=== PATIENT | female | born 1955 | race Caucasian/White ===

== ENCOUNTER 2025-01-23 07:41 | Outpatient (CLI) | payer MEDICARE, SELFPAY ==
--- NOTE | ~2025-01-23 | XR_ITS ---
EXAMINATION: XR chest 2V, 01/23/2025 9:20 CREDIT OR LOANS OFFICER HISTORY: M51.16 - Intervertebral disc disorders with radiculopathy... COMPARISON: No comparisons available. Technique: 2 views obtained. Findings: The lungs are clear, no effusion. No pneumothorax. Heart is normal size. Mediastinal and hilar contours are within normal limits. Bony thorax no acute abnormality. Impression: No acute cardiopulmonary abnormality. Reviewed, dictated and finalized at location P. IT OR LOANS OFFICER Impression: No acute cardiopulmonary abnormality.
--- OUTSIDE RECORDS SUMMARY | 2025-01-23 07:47 | XMS_ITS | Encounter Summary ---
Author Organization [facility] Address [address] [place] [address] Phone Care Team Providers Care Commissioner Of Internal Revenue Name Role Phone Jose Manuel Nance MD Primary Care Provider Irene Steiner FURNACE STOCK INSPECTOR Unavailable [phone] Encounter Details Date Type Department Care Team (Late st Contact Info) Description 08/09/2017 Orders Only [facility] ProviderJamilah MD [address] [place] [id number] Social History Tobacco Use Types Packs/Day Years Used Date Smoking Tobacco: Some Days Smokeless Tobacco: Never Comments:Smoking History Pac ks/day: 1 Packs Alcohol Use Standard Drinks/Week Comments No 0 (1 standard drink = 0.6 oz pur e alcohol) Comments Unknown Sex and Gender Information Value Date Recorded Sex Assigned at Not on file Legal Sex Female 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 Historical Provider LAB BLOOD ORDERABLES Jessica l Result documented in this encounter Visit Diagnoses Not on filedocumented in this encounter Care Teams Commissioner Of Internal Revenue Relationship Specialty Start Date End Date Jose Manuel Nance MD PCP - General 06/16/16 Irene Steiner NP Nurse Practitioner Endocrinology Diabetes & Metabolism 01/19/20 documented as of this encounter
--- OUTSIDE RECORDS SUMMARY | 2025-01-23 07:48 | XMS_ITS | Clinical Summary ---
Author Organization [facility] Address [address] [place] [address] Care Team Providers Care Soils Analyst Name Role Phone Michael Menezes MD Primary Care Provider Irene Steiner [employer] Unavailable [phone] Allergies Active Allergy Reactions Criticality Noted Date Comments Iodine Other (See comments) Low Was put on a wound when she was little and she states the wound got worse Penicillins Unknown Low Reaction: Other, , , Povidone-Iodine Other (See comments) Low Was put on a wound when she was little and she states the wound got worse Shellfish Containing Products Hives Medium Medications Lactobacillus acidophilus (Probiotic) 10 billion cell capsule Take by mouth daily Active acetaminophen (TYLENOL) 500 mg tabletIndicatio ns:Back Pain,Pain Take 1 tablet (500 mg total) by mouth every 6 (six) hours as needed for pain 30 tablet 07/05/19 23 Active blood-glucose sensor device 1 Device every 14 (fourteen) days 6 each 3 03/27/19 24 Active PARoxetine (PAXIL) 20 mg tablet Take 1 tablet (20 mg total) by mouth every morning Note lower dose 90 tablet 3 04/03/19 25 Active gabapentin (NEURONTIN) 300 mg capsule Take 1 capsule (300 mg total) by mouth 4 (four) times a day Active diphenhydrAMINE (BENADRYL) 50 mg capsule Take 1 capsule (50 mg total) by mouth once for 1 dose Take 1 hour prior to scan 1 capsule 08/19/19 25 Active pregabalin (LYRICA) 75 mg capsule Take 1 capsule (75 mg total) by mouth 2 (two) times a day For shingles pain this replaces gabapentin 60 capsule 4 10/10/19 25 026 Active empagliflozin (Jardiance) 25 mg tabletIndicatio ns:Type 2 diabetes mellitus without complication, without long-term current use of insulin (HCC) Take 1 tablet (25 mg total) by mouth daily Note higher dose 90 tablet 3 10/10/19 25 Active tirzepatide (Mounjaro) 12.5 mg/0.5 mL pen injector injection Inject 0.5 mL (12.5 mg total) under the skin once a week 2 mL 10/10/19 25 Active cyclobenzaprine (FLEXERIL) 10 mg tablet TAKE 1 TABLET (10 MG TOTAL) BY MOUTH TWO (2) TIMES a DAY NEEDED FOR MUSCLE SPASMS 60 tablet 10/18/19 25 Active fenofibrate (TRIGLIDE) 160 mg tablet TAKE 1 TABLET (160 MG TOTAL) BY MOUTH DAILY 90 tablet 1 10/21/19 25 Active atorvastatin (LIPITOR) 40 mg tablet TAKE 1 TABLET (40 MG TOTAL) BY MOUTH DAILY 90 tablet 1 10/28/19 25 Active metoprolol tartrate (LOPRESSOR) 25 mg immediate release tablet TAKE 1 TABLET (25 MG TOTAL) BY MOUTH TWO (2) (TWO) TIMES a DAY. 200 tablet 1 11/15/19 25 Active clopidogreL (PLAVIX) 75 mg tablet TAKE 1 TABLET (75 MG TOTAL) BY MOUTH DAILY 90 tablet 3 11/26/19 25 Active LORazepam (ATIVAN) 0.5 mg tablet TAKE 1 TABLET (0.5 MG TOTAL) BY MOUTH EVERY SIX (6) HOURS NEEDED FOR ANXIETY 60 tablet 5 12/20/19 25 Active lisinopriL (PRINIVIL,ZESTR IL) 5 mg tablet TAKE ONE (1) TABLET (5 MG TOTAL) BY MOUTH DAILY 90 tablet 3 12/30/19 25 Active metFORMIN XR (GLUCOPHAGE XR) 500 mg 24 hr tablet TAKE TWO (2) TABLETS (1,000 MG TOTAL) BY MOUTH DAILY WITH BREAKFAST 180 tablet 3 12/30/19 25 Active lisinopriL (PRINIVIL,ZESTR IL) 5 mg tablet TAKE ONE (1) TABLET (5 MG TOTAL) BY MOUTH DAILY 90 tablet 1 07/02/19 25 025 Discontinued metFORMIN XR (GLUCOPHAGE XR) 500 mg 24 hr tablet TAKE TWO (2) TABLETS (1,000 MG TOTAL) BY MOUTH DAILY WITH BREAKFAST 180 tablet 1 07/02/19 25 025 Discontinued metFORMIN XR (GLUCOPHAGE XR) 500 mg 24 hr tablet TAKE TWO (2) TABLETS (1,000 MG TOTAL) BY MOUTH DAILY WITH BREAKFAST 180 tablet 1 12/30/19 25 025 Discontinued lisinopriL (PRINIVIL,ZESTR IL) 5 mg tablet TAKE ONE (1) TABLET (5 MG TOTAL) BY MOUTH DAILY 90 tablet 1 12/30/19 25 025 Discontinued Active Problems Problem Noted Date Diagnosed Date 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 Assessment & Plan (07/23/2024 10:23 AM CDT): Discussed repeat needle biopsy, versus open biopsy, versus referral to Head and Neck Surgery for possible neck dissection to remove all involved lymph nodes Decision at this point is to proceed with referral to Head and Neck surgery Personal interpretation of PET scan: uptake in the Right Level II and III Assessment & Plan (05/21/2024 1:00 PM [employer]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): Doxycycline twice daily for 3 weeks, avoid dairy and sun exposure while on this antibiotics Neck Ultrasound in 3-[address] Neck and Consider excisional biopsy Have Dental evaluation Personal interpretation of PET scan noted multiple right Level II and III lymphadenopathy Lesion of tonsil 05/11/2022 Assessment & Plan (06/23/2022 2:36 PM CDT): Continue increased fluids intake and milder diet for one more week Follow up as needed Assessment & Plan (05/11/2022 9:20 AM 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): Direct laryngoscopy with biopsy of Right tonsillar fossa and midline base of tongue Risks and complications discussed including anesthesia, bleeding, infection, injury to lips, teeth, tongue and gums, injury to larynx and surrounding structures, benign versus malignant pathology, need for further treatment. All questions were answered and patient agreed to proceed. Off Plavix and Aspirin for 5 days before and after Lesion of tongue 05/11/2022 Assessment & Plan (06/23/2022 2:36 PM CDT): Continue increased fluids intake and milder diet for one more week Follow up as needed Assessment & Plan (05/11/2022 9:20 AM PR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): Direct laryngoscopy with biopsy of Right tonsillar fossa and midline base of tongue Risks and complications discussed including anesthesia, bleeding, infection, injury to lips, teeth, tongue and gums, injury to larynx and surrounding structures, benign versus malignant pathology, need for further treatment. All questions were answered and patient agreed to proceed. Off Plavix and Aspirin for 5 days before and after Annual physical exam 08/26/2018 Assessment & Plan (08/26/2018 9:01 AM CDT): Pt was encouraged to F/U next year for annual influenza vaccination, tetanus/Tdap vaccine was discussed but deferred at this time. Pneumococcal vaccination discussed in detail, she did agree to receive the Prevnar 13 vaccine to F/U in 1 year to receive the P23 vaccine. Shingrix vaccine discussed today in office and will consider vaccination to get onto our waiting list. Pt was strongly encouraged to Cnt. With heart healthy diet with modifications considering chronic conditions, and developing exercise regimen to improve overall heart health In regard to health maintenance, Colonoscopy in 2015, not due until 2025. Last mammogram completed in March 2018, ordered today in office to complete in March 2019 prior to coming CPE WWE was advised for her to schedule in our office for certainly consultation to tower supervisor. DEXA ordered today in clinic DM-annual visual examination with the production sanitizer and flat locker detailed above, declines need for podiatry consultation w/o presence of peripheral neuropathy or nonhealing wound/ulcers in feet ASCVD risk: 14.8% within an intermediate risk. D/T her uncontrolled diabetes and dyslipidemia status & Hx of PCI, she is intermediate risk were strongly encouraged today to Pt due are concerns of her CAD progression All past family, social, medical, and surgical history reviewed and updated in EMR. Pt was encouraged to follow back up for next annual CP with labs prior to visit. Tobacco use 08/26/2018 Assessment & Plan (09/03/2019 12:06 PM CDT): Encouraged to stop smoking. Assessment & Plan (08/26/2018 8:26 AM CDT): Tobacco cessation counseling was provided office today for 3-5 minutes in total detailing available OTC prescription methods which were encouraged and discussed in detail during ov. Pt does understand the risk associated with long-term, or intermittent, use which contribute to development of heart disease as well as chronic lung conditions. Postmenopausal 08/26/2018 Assessment & Plan (08/26/2018 8:57 AM CDT): Advised Pt to obtain DEXA scan D/T her risk associated with development of osteoporosis including long-term tobacco user, , postmenopausal state. Further follow-up pending results of DEXA scan. Current moderate episode of major depressive disorder without prior episode 08/26/2018 Assessment & Plan (10/09/2024 10:36 AM CDT): Cervical radiculopathy 02/19/2017 Atopic rhinitis 08/02/2013 Overview (06/21/2016): ALLERGIC RHINITIS NOS Hypertension associated with diabetes 08/02/2013 Overview (06/22/2016): BENIGN HYPERTENSION Assessment & Plan (10/09/2024 10:36 AM CDT): Orders: Comprehensive metabolic panel; Future Hemoglobin A1c; Future Lipid panel; Future Assessment & Plan (06/18/2024 9:02 AM CDT): Recommend DASH diet, heart-healthy lifestyle, exercise. Discussed the risks of hypertension. Assessment & Plan (09/28/2021 10:17 AM CDT): This is a chronic condition which is at goal Goal is <140/90 Personally reviewed labs. Continue on lisinopril, metoprolol Avoid caffeine, caffeine will raise blood pressure and excessive alcohol consumption. Monitor your weight and B/P. Encouraged to take medications as prescribed. Assessment & Plan (09/03/2019 11:46 AM CDT): This is a chronic condition and is stable. Reviewed labs. BP today 134/84 Encouraged to eat healthy, include fresh fruits and vegetables daily. Avoid caffeine, caffeine will raise blood pressure and excessive alcohol consumption. Monitor your weight and B/P. Try moving at least a total of 30 minutes/day. This does not have to be done at one time. Please take medications as prescribed. Continue on Lopressor 25 mg daily, atorvastatin 20 mg daily, lisinopril 5 mg daily. Assessment & Plan (08/26/2018 8:31 AM CDT): Normotensive today in clinic with microalbumin and kidney function both well WNL. Pt was once again encouraged to Cnt. With current dosing of lisinopril, anti- platelet therapies, dash and low-fat diet, increasing daily moderate exercise as tolerated, rate with smoking cessation. Follow-up in office in 4 months with repeat labs prior to OV Mixed hyperlipidemia 08/02/2013 Overview (06/22/2016): HYPERLIPIDEMIA NEC/NOS Assessment & Plan (10/09/2024 10:36 AM CDT): Assessment & Plan (09/28/2021 10:18 AM CDT): This is a chronic condition which is close to goal. Goal is less than 70. Personally reviewed lipid panel. LDL - 89, currently on atrovastatin. Atorvastatin increased to 40 mg daily. Encouraged to eat healthy, include fresh fruits and vegetables daily and avoid eating fried foods more than once per week. Encouraged to take medications as prescribed. Assessment & Plan (09/02/2020 10:10 AM CDT): This is a chronic condition which is not at goal. Goal is less than 70. LDL-120. Personally reviewed lipid panel. Encouraged to eat healthy, include fresh fruits and vegetables daily and avoid eating fried foods more than once per week. Please take medications as prescribed. Continue on Atorvastatin 20 mg daily. Assessment & Plan (07/22/2020 11:03 AM CDT): This is a chronic condition which is not at goal. Reviewed labs. (02.05) Trig- 192, LDL- 110. Repeat lipid panel at next office visit. Encouraged to eat healthy, include fresh fruits and vegetables daily and avoid eating fried foods more than once per week. Try moving at least a total of 30 minutes/day. This does not have to be done at one time. Please take medications as prescribed. Continue on atorvastatin 20 mg daily, fenofibrate 160 mg p.o. daily Assessment & Plan (09/03/2019 12:00 PM CDT): This is a chronic condition which is improving, but not at goal. Reviewed labs. Triglyceride level was at 296 (12/05) LDL 95. repeat triglyceride level at next visit after increasing the 0zempic and the metformin to see if the decrease in blood sugar will also reduce the triglyceride levels. Encouraged to eat healthy, include fresh fruits and vegetables daily and avoid eating fried foods more than once per week. Try moving at least a total of 30 minutes/day. This does not have to be done at one time. Please take medications as prescribed. Continue on atorvastatin 20 mg daily, fenofibrate 160 mg p.o. daily Assessment & Plan (08/26/2018 8:30 AM CDT): Dyslipidemia stable, but not near goal with LDL of 116, triglycerides at 305., total 192, and HDL 32. Resolved Problems Problem Noted Date Diagnosed Date Resolved Date Mixed hyperlipidemia 08/27/2020 022 Assessment & Plan (12/03/2020 9:57 AM CDT): This is a chronic condition which is not at goal. Goal is less than 70. Personally reviewed lipid panel. LDL - 111 , currently on atrovastatin. Atorvastatin increased to 40 mg daily. Encouraged to eat healthy, include fresh fruits and vegetables daily and avoid eating fried foods more than once per week. Encouraged to take medications as prescribed. Type 2 diabetes mellitus, [facility] long-term current use of insulin 08/26/2018 04/03/2024 Assessment & Plan (09/28/2021 10:43 AM CDT): This is a chronic condition which is at goal. Personally reviewed A1c today- 7% at goal less than 7% Medication- increase Ozempic 2mg weekly, Continue Metformin 1000mg daily, add Jardiance 10mg daily. Monitor blood sugar 2 times a day. Encouraged annual eye exam. last dilated eye exam was 10/05 Monofilament foot exam completed, protective senses intact, Urine microalbumin/creatinine ratio - <30. currently on lisinopril 5mg daily, at goal <30 Personally reviewed labs: BUN- 23, creatinine- 0.75 GFR- 91 Kidney function- normal B/P today- 122/68, currently on lisinopril and metoprolol, at goal blood pressure is <140/90 and as close to 120/80 as possible. Personally reviewed LDL -89, currently on atrovastatin. Not at goal of less than 70. No history of macrovascular disease - CVA, [place]. Assessment & Plan (06/28/2021 10:23 AM CDT): Control : not at target A1c 7.7% on 06/28/21 Kidney: normal GFR in February/2021 Neuropathy : none Plan: Patient asked to watch diet and increase physical activity Continue joe diabetic medication, but consider increasing dose of Metformin or jardiance if A1c not improving. Monitor sugars Once /day Hypoglycemia symptoms and treatment reviewed with patient. Call if having low sugars. Ophthalmology exam on regular basis. Assessment & Plan (03/29/2021 10:11 AM 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): This is a chronic condition which is at goal. Personally reviewed A1c today- 7% at goal less than 7% Medication- Continue Ozempic 1mg weekly, Continue Metformin 1000mg daily, add Jardiance 10mg daily. Monitor blood sugar 2 times a day. Encouraged annual eye exam. last dilated eye exam was 10/05 Monofilament foot exam completed, protective senses intact, Urine microalbumin/creatinine ratio - <30. currently on lisinopril 5mg daily, at goal <30 Personally reviewed labs: BUN- 20, creatinine- 0.72 GFR- 91 Kidney function- normal B/P today- 124/64, currently on lisinopril and metoprolol, at goal blood pressure is <140/90 and as close to 120/80 as possible. Personally reviewed LDL - 93 , currently on atrovastatin. Not at goal of less than 70. No history of macrovascular disease - CVA, VT. Assessment & Plan (12/03/2020 9:58 AM CDT): This is a chronic condition which is at goal. Personally reviewed A1c today- decreased to 6.8% not at goal less than 7% Medication- Continue Ozempic 1mg weekly, Continue Metformin 1000mg daily, add Jardiance 10mg daily. Monitor blood sugar 2 times a day. Requesting Freestyle Yahaira 2 sensor but was denied by insurance Sample Freestyle Libre2 provided. Encouraged annual eye exam. last dilated eye exam was 10/05 Monofilament foot exam completed, protective senses intact, Urine microalbumin/creatinine ratio - <30. currently on lisinopril 5mg daily, at goal <30 Personally reviewed labs (08/19/20) : BUN- 15, creatinine- 0.74 GFR- 91 Kidney function- normal B/P today- 130/74, currently on lisinopril and metoprolol, at goal blood pressure is <140/90 and as close to 120/80 as possible. Personally reviewed LDL - 111 , currently on atrovastatin. Not at goal of less than 70. Atorvastatin increased to 40 mg daily. No history of macrovascular disease - CVA, VT. Assessment & Plan (09/02/2020 10:19 AM CDT): This is a chronic condition which is improving but not at goal. Personally reviewed A1c today- decreased to 8.3% from 9.4%, not at goal less than 7% Medication- Continue Ozempic 1mg weekly, Continue Metformin 1000mg daily, add Jardiance 10mg daily. Discussed she may need insulin. Verbalized understanding. Monitor blood sugar 2 times a day. Requesting Freestyle Yahaira 2 sensor. Encouraged annual eye exam. last dilated eye exam was 10/05 Monofilament foot exam completed, protective senses intact, Urine microalbumin/creatinine ratio - 8 (02/05) currently on lisinopril 5mg daily, at goal <30 Personally reviewed labs (08/19/20) : BUN- 15, creatinine- 0.74 GFR- 91 Kidney function- normal B/P today- 122/80, currently on lisinopril and metoprolol, at goal blood pressure is <140/90 and as close to 120/80 as possible. Personally reviewed LDL - 120 () , currently on atrovastatin/fenofibrate. Not at goal of less than 70 No history of macrovascular disease - CVA, VT. Assessment & Plan (07/22/2020 10:59 AM CDT): This is a chronic condition which is uncontrolled with hyperglycemia, not at goal. Personally reviewed A1c today- 9.4%, not at goal less than 7% Medication- Continue Ozempic 1mg weekly, Continue Metformin 1000mg daily, add Jardiance 10mg daily. Discussed she may need insulin. Verbalized understanding Monitor blood sugar 2 times a day. Requesting Freestyle Yahaira 2 sensor. Encouraged annual eye exam. last dilated eye exam was 10/05 Monofilament foot exam completed, protective senses intact, Urine microalbumin/creatinine ratio - 8 (02/05) currently on lisinopril 5mg daily, at goal <30 Personally reviewed labs (02/05) : BUN- 14, creatinine- 0.70 GFR- 91 Kidney function- normal B/P today- 122/60, currently on lisinopril, at goal blood pressure is <140/90 and as close to 120/80 as possible. Personally reviewed LDL - 110 (11.20) , currently on atrovastatin/fenofibrate. Not at goal of less than 70 No history of macrovascular disease - CVA, VT. Assessment & Plan (09/03/2019 12:03 PM CDT): This is a chronic condition which is improving, but not at goal. Labs reviewed. Most likely the hypoglycemia is due to the this use of sulfonylureas with the glp-1. Medication- stop glyburide, increase metformin to 1000 mg twice a day, she says she is not taking Januvia, increase Ozempic to 1 mg weekly. A contour next glucometer was provided with 10 strips and she was encouraged to check her blood sugar. A sample freestyle yahaira continues glucose monitor was placed in the office to obtain blood sugars for the next 2 weeks Scan blood sugar 4 times a day And call office with results Call office if blood sugars is dropping below 80. Call office if your blood sugar is greater than 250 for 3 days. Surveillance of Diabetes complications last dilated eye exam was done 2 years ago, she was strongly encouraged to obtain another eye exam protective sensation to feet intact Urine microalbumin/creatinine ratio -normal 03/28/2019 currently lisinopril 5 mg p.o. dailyBP today-134/80 , currently on Lopressor 25 mg daily lisinopril 5 mg daily LDL -95, currently on atorvastatin 20 mg p.o. daily She has a history of VT in the past. EGRF 11/27/2018 87 Type 2 diabetes mellitus 08/02/201312/2018 Overview (06/22/2016): DMII WO CMP NT ST UNCNTR Conjunctivitis 11/15/2011 08/22/2019 Overview (06/22/2016): Conjunctivitis NOS Encounters Date Type Department Care Team Description 01/02/2025 Telephone [facility] Medicine Otolaryngology [address] [id number] Yancy Ventura MS 12/09/2024 10:58 AM CDT - 12/09/2024 11:59 PM CDT Hospital Encounter [facility] [address] [facility] [address] [place] [address] Jose Diop MD Lumbar radiculopathy (Primary Dx); Spinal stenosis of lumbar region with neurogenic claudication Discharge Disposition: Discharge to home or self care 11/12/2024 Orders Only [facility] Primary Care at [address] [place] [address] Michael Menezes MD Spinal stenosis of lumbar region, unspecified whether neurogenic claudication present (Primary Dx); Closed compression fracture of L1 vertebra, initial encounter ([facility]) 11/11/2024 Results Follow-Up [facility] Primary Care at [address] [place] [address] Michael Menezes MD MRI Lumbar Spine WO Contrast 11/10/2024 3:51 PM CDT - 11/10/2024 11:59 PM CDT Hospital Encounter [facility] [address] [place] [address] Lumbar radiculopathy Discharge Disposition: Discharge to home or self care 10/30/2024 Orders Only [facility] [address] [facility] [address] [place] [address] Tali Mueller NP Lumbar radiculopathy (Primary Dx) from Last 3 Months Immunizations Immunization Administration Dates Next Due Influenza, Quadrivalent, Hig h Dose, Preservative Free, Intrr 03/27/2023,03/09/2022,03/01/2021,02/25 Influenza, Quadrivalent, Spl it, Preservative Free, Intradermal 02/03/2016 Influenza, Quadrivalent, Spl it, Preservative Free, Intramuscular 02/22/2018,02/19/2017 Influenza, Trivalent, High D ose, Split, Preservative Free, Intramuscular 02/01/2024 Influenza, Trivalent, IM (MDV) 12/26/2012 Influenza, Unspecified 04/10/2019(Deferr ed: Patient Refused),12/17/2018(Deferred: Patient Refused),12/09/2018(Deferred: Patient Refused) Moderna SARS-CoV-2 Monovalen t Vaccination (12+ YRS) 05/25/2020,04/21/2020 Pneumococcal Conjugate PCV 13 08/26/2018 Pneumococcal Polysaccharide PPV23 08/27/2020 Surgical History Surgery Date Site/Laterality Comments OTHER SURGICAL HISTORY 03/19/2011 - 03/18/2012 Cellulitis & Shingles: [facility] ER visit 03/02/12 BREAST BIOPSY 1980s Right benign surgical bx, no scar CORONARY ANGIOPLASTY WITH STENT PLACEMENT 1 stent TONSILLECTOMY AND ADENOIDECTOMY TUBAL LIGATION US GUIDED BIOPSY LYMPH NODE SUPERFICIAL LEFT 04/25/2024 N/A COLONOSCOPY Medical History Medical History Date Comments Hx Other Medical 2006 Cyst removal fr om groin Hx Other Medical 00-[facility] 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 Hx Other Medical 2011 Cellulitis & Sh ingles Hx Other Medical er 2 times and dx with GERD; Comments: LNP 04/10/2014 - Hx Other Medical stent placement ; Comments: LNP 04/10/2014 - Hx Other Medical er heart attack ; Comments: LNP 04/10/2014 - Fibrocystic breast Breast cyst Mixed hyperlipidemia 08/27/2020 Hypertension GERD (gastroesophageal reflux disease) Type 2 diabetes mellitus Arthritis Anxiety Diabetes Heart disease High blood pressure Osteoporosis Tinnitus Family History Medical History Relation Name Comments Brain cancer Father Cancer -brain t umor; Cause of : Cancer -brain tumor Cancer Father Cancer, unknown ; Cancer Mother Cancer, unknown ; Other Mother Cancer -Para na feli sinus; Cause of : Cancer -Para nasal sinus Breast cancer Mother's Sister nikloe Relation Name Status Comments Father (Age 49) Mother (Age 42) Mother's Sister olive Social History Tobacco Use Types Packs/Day Years Used Date Smoking Tobacco: Former Cigarettes 1 35 1 - 2024 Smokeless Tobacco: Never Tobacco Cessation:Counseling Given: Not Answered Comments:Smoking History Packs/day: 1 Packs Alcohol Use Standard Drinks/Week Comments No 0 (1 standard drink = 0.6 oz pur e alcohol) AUDIT-C Answer Date Recorded Q1: How often do you have a drink containing alcohol? Never 06/18/2024 Q2: How many drinks containi ng alcohol do you have on a typical day when you are drinking? Patient does not drink Q3: How often do you have si x or more drinks on one occasion? Never 06/18/2024 PHQ-2 Answer Date Recorded PHQ-2 Total Score (If total score is 3 or more points, staff should administer the PHQ-9) 0 10/09/2024 PHQ-9 Answer Date Recorded PHQ-9 Total Score 1 07/15/2024 Personal Safety Answer Date Recorded Have you ever been in or are you currently in a harmful physical or emotional relationship or is someone making you feel afraid or unsafe? Denies 04/25/2024 Comments No Sex and Gender Information Value Date Recorded Sex Assigned at Not on file Legal Sex Female 11:52 PM 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 Gender Identity Not on file Sexual Orientation Not on file Obstetrics History Para Term AB IAB SAB Ectopic Multiple Livin g Live Births 1 1 1 Date Outcome GA Total Labor Labor/2nd/3rd Weight Sex Type Anes PTL Farzana A1 A5 Name Clin Term Last Filed Vital Signs Vital Sign Reading Time Taken Comments Blood Pressure 131/49 12/09/2024 11:17 AM CDT Pulse 80 12/09/2024 11:17 AM CDT Temperature 36.6 C (97.8 F) 10/09/2024 10:03 AM CDT Respiratory Rate 18 12/09/2024 11:17 AM CDT Oxygen Saturation 93% 12/09/2024 11:17 AM CDT Inhaled Oxygen Concentration - - Weight 75.8 kg (167 lb) 10/09/2024 10:03 AM CDT Height 165.1 cm (5' 5) 10/09/2024 10:03 AM CDT Body Mass Index 27.79 10/09/2024 10:03 AM CDT Plan of Treatment Health Maintenance Due Date Last Done Comments Hepatitis B Screening 1972 Zoster Vaccine (1 of 2) 2004 Breast Cancer Screening-Mammogram 05/12/2024 05/12/2023, 10/04/2021, 09/13/2020, Additional history exists Dilated Eye Exam 07/26/2024 07/27/2023, 10/2022, 10/06/2019, Additional history exists Covid-19 Vaccine ( season) 2024 01/26/2021, 05/25/2020, 04/21/2020 Influenza Vaccine (#1) 2024 , 03/27/2023, 03/09/2022, Additional history exists Lung Cancer Screening 03/02/2025 03/01/2024 Well Visit 65+ 04/03/2025 04/03/2024, 0 11/2023, 09/06/2021, Additional history exists Hemoglobin A1C 04/08/2025 10/06/2024, 03/19, 09/17/2023, Additional history exists Colon Cancer Screening-Colonoscopy 06/30/2025 07/01/2015, 07/01/2015 Albumin Creatinine Ratio, Urine 10/06/2025 10/06/2024, 09/17/2023, 09/11/2022, Additional history exists Lipid Panel 10/06/2025 10/06/2024, 03/19, 09/17/2023, Additional history exists eGFR 10/06/2025 10/06/2024, 03/2 , 05/08/2024, Additional history exists Depression Screening 10/09/2025 10/09/2024, 07/15/2024, 07/15/2024, Additional history exists Fall Risk Assessment 10/09/2025 10/09/2024, 06/18/2024, 04/25/2024, Additional history exists Foot Exam 10/09/2025 10/09/2024, 03/19, 09/24/2023, Additional history exists DTaP/Tdap/Td Vaccine (1 - Tdap) 10/11/2025 Postponed from 1965 (Patient declined, but will receive in the future) Osteoporosis Screening-Bone Density Scan 05/07/2026 05/07/2024, 03/10/2021, 06/08/2010, Additional history exists Hepatitis C Screening Completed 04/06/2014 Colon Cancer Screening-CT Colonography Discontinued 07/01/2015, 07/01/2015 Colon Cancer Screening-DNA Stool Discontinued 07/01/2015, 07/01/2015 Colon Cancer Screening-FIT Discontinued 07/01/2015, Colon Cancer Screening-Sigmoidoscopy Discontinued 07/01/2015, 07/01/2015 Pneumococcal vaccine 65+ Completed 08/27/2020, 08/17 Procedures Procedure Name Priority Date/Time Associated Diagnosis Comments MRI LUMBAR SPINE WO CONTRAST Schedule Routine, Read Routine (OP Routine) 11/10/2024 4:23 PM CDT Lumbar radiculopathy COMPREHENSIVE METABOLIC PANEL Routine 10/06/2024 8:25 AM CDT Hypertension associated with diabetes (HCC) HEMOGLOBIN A1C Routine 10/06/2024 8:25 AM CDT Hypertension associated with diabetes (HCC) LIPID PANEL Routine 10/06/2024 8:25 AM CDT Hypertension associated with diabetes (HCC) ALBUMIN CREATININE RATIO, URINE Routine 10/06/2024 8:25 AM CDT Hypertension associated with diabetes (HCC) DEXA AXIAL SKELETON BONE DENSITY 1 OR MORE SITES Schedule Routine, Read Routine (OP Routine) 05/07/2024 9:00 AM 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 Compression fracture of first lumbar vertebra with routine healing Osteoporosis, unspecified osteoporosis type, unspecified pathological fracture presence CT LUNG CANCER SCREENING Schedule Routine, Read Routine (OP Routine) 03/01/2024 8:20 AM 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 Personal history of nicotine dependence DIABETIC EYE EXAM Routine 07/27/2023 SCREENING MAMMOGRAM BILATERAL W ANGELITO Schedule Routine, Read Routine (OP Routine) 05/12/2023 8:48 AM 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 Visit for screening mammogram HM DIABETES FOOT EXAM Routine 08/22/2019 COLONOSCOPY IMAGES 07/01/2015 SERUM HEPATITIS PANEL Routine 04/06/2014 5:26 AM 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 from Last 3 Months or Most Recently Relevant to Health Maintenance Results * MRI Lumbar Spine WO Contrast (11/10/2024 4:23 PM CDT) Anatomical Region Laterality Modality Spine N/A Magnetic Resonan ce 11/11/2024 11:5 5 AM CDT Narrative 11/11/2024 12:03 PM CDT EXAM DESCRIPTION: MRI LUMBAR SPINE WO CONTRAST REASON FOR STUDY: Low back pain, symptoms persist with > 6 wks treatment Injured back about 2 years ago picking up cement blocks. Steadily getting worse. Now has right leg tingling . No surgery TECHNIQUE: Sagittal and Axial imaging includes T1, T2, STIR sequences. COMPARISON: Lumbar spine CT dated 07/04/2022. Lumbar spine radiographs dated 05/07/2024 and 07/04/2022. Relevant portions of the whole-body PET-CT dated 02/14/2025. FINDINGS: SEGMENTATION: 5 [id number]-[id number] lumbar type vertebral bodies. ALIGNMENT: Mild retrolisthesis of L4 on L5 and L5 on S1 VERTEBRAE: The L1 superior endplate compression deformity has slightly worsened when compared to the previous lumbar spine CT dated 07/04/2022. There is 55% height loss. Minimal linear STIR signal of the remaining superior margin could be residual edema. Please correlate with point tenderness to exclude acute on chronic injury. Retropulsed posterior corner flattens the ventral thecal sac. Elsewhere there is no acute compression fracture in the lumbar spine. Multilevel endplate degenerative changes and marginal spur formation. DISC HEIGHT: Diffuse disc desiccation and height loss. HARDWARE: None in the spine. CORD/CAUDA: Conus medullaris terminates at L1. LOWER THORACIC: Incompletely imaged. Degenerative changes without high-grade spinal canal stenosis. INDIVIDUAL DISC LEVELS: T12-L1: Disc bulge retropulsed posterior corner of L1 fracture flattens the ventral thecal sac. Thickened ligamentum flavum and facet arthropathy. No significant neural foraminal narrowing. L1-L2: No significant disc bulge, spinal canal or neural foraminal narrowing. L2-L3: Minor disc bulge with thickened ligamentum flavum and facet arthropathy. No significant spinal canal or neural foraminal narrowing. L3-L4: Minor disc bulge with thickened ligamentum flavum and facet arthropathy. Flattening of the ventral thecal sac. No significant neural foraminal narrowing. L4-L5: Retrolisthesis L4 on L5 with unroofing of the disc. Superimposed central disc protrusion with annular fissure. Thickened ligamentum flavum and facet arthropathy. Moderate to severe spinal canal stenosis and severe lateral recess narrowing on both sides. Mild bilateral neural foraminal narrowing. L5-S1: Disc bulge with marginal spur formation. Superimposed central disc protrusion. Bilateral facet arthropathy. Proliferation of epidural fat. Mild spinal canal stenosis. Lateral recess narrowing on both sides with disc/marginal spur abutting the descending S1 nerve roots. Mild neural foraminal narrowing. VISUALIZED UPPER ABDOMEN: Left renal rounded T2 hyperintense foci are incompletely characterized on this MRI but commonly reflect cyst. IMPRESSION: 1. The L1 vertebral body compression deformity has slightly worsened when compared to the previous lumbar spine CT dated 07/04/2022. Minimal STIR signal could be residual edema. Please correlate with point tenderness to exclude acute on chronic injury. Retropulsed posterior corner flattens the ventral thecal sac. 2. Elsewhere there is no acute compression fracture in the lumbar spine. 3. Multilevel lumbar disc degeneration with thickened ligamentum flavum and facet arthropathy as described. Spinal canal stenosis ranging up to moderate to severe at L4-L5. 4. Lateral recess narrowing is most noticeable at L4-L5 and L5-S1. 5. Lateral recess stenosis and additional findings as above. THIS IS AN ELECTRONICALLY VERIFIED FINAL REPORT 11/11/2024 12:03 PM - Electronically signed by Juan Peterson D.O. AP: AP Report ID: [id number] Reading Location: [id number] Procedure Note Juan Peterson, DO - 11/11/2024 EXAM DESCRIPTION: MRI LUMBAR SPINE WO CONTRAST REASON FOR STUDY: Low back pain, symptoms persist with > 6 wks treatment Injured back about 2 years ago picking up cement blocks. Steadily getting worse. Now has right leg tingling . No surgery TECHNIQUE: Sagittal and Axial imaging includes T1, T2, STIR sequences. COMPARISON: Lumbar spine CT dated 07/04/2022. Lumbar spine radiographs dated 05/07/2024 and 07/04/2022. Relevant portions of the [id number] dated 02/14/2025. FINDINGS: SEGMENTATION: 5 ehz-gxa-dgdztwk lumbar type vertebral bodies. ALIGNMENT: Mild retrolisthesis of L4 on L5 and L5 on S1 VERTEBRAE: The L1 superior endplate compression deformity has slightly worsened when compared to the previous lumbar spine CT dated 07/04/2022. There is 55% height loss. Minimal linear STIR signal of the remaining superior margin could be residual edema. Please correlate with point tenderness to exclude acute on chronic injury. Retropulsed posteriorcorner flattens the ventral thecal sac. Elsewhere there is no acute compression fracture in the lumbar spine. Multilevel endplate degenerative changesand marginal spur formation. DISC HEIGHT: Diffuse disc desiccation and height loss. HARDWARE: None in the spine. CORD/CAUDA: Conus medullaris terminates at L1. LOWER THORACIC: Incompletely imaged. Degenerative changes without high-grade spinal canal stenosis. INDIVIDUAL DISC LEVELS: T12-L1: Disc bulge retropulsed posterior corner of L1 fracture flattensthe ventral thecal sac. Thickened ligamentum flavum and facet arthropathy.No significant neural foraminal narrowing. L1-L2: No significant disc bulge, spinal canal or neural foraminalnarrowing. L2-L3: Minor disc bulge with thickened ligamentum flavum and facet arthropathy. No significant spinal canal or neural foraminal narrowing. L3-L4: Minor disc bulge with thickened ligamentum flavum and facet arthropathy. Flattening of the ventral thecal sac. No significant neural foraminal narrowing. L4-L5: Retrolisthesis L4 on L5 with unroofing of the disc. Superimposed central disc protrusion with annular fissure. Thickened ligamentum flavumand facet arthropathy. Moderate to severe spinal canal stenosis and severe lateral recess narrowing on both sides. Mild bilateral neural foraminal narrowing. L5-S1: Disc bulge with marginal spur formation. Superimposed central disc protrusion. Bilateral facet arthropathy. Proliferation of epidural fat. Mild spinal canal stenosis. Lateral recess narrowing on both sides with disc/marginal spur abutting the descending S1 nerve roots. Mild neural foraminal narrowing. VISUALIZED UPPER ABDOMEN: Left renal rounded T2 hyperintense foci are incompletely characterized on this MRI but commonly reflect cyst. IMPRESSION: 1. The L1 vertebral body compression deformity has slightly worsenedwhen compared to the previous lumbar spine CT dated 07/04/2022. Minimal STIR signal could be residual edema. Please correlate with point tenderness to exclude acute on chronic injury. Retropulsed posterior corner flattensthe ventral thecal sac. 2. Elsewhere there is no acute compression fracture in the lumbar spine. 3. Multilevel lumbar disc degeneration with thickened ligamentum flavumand facet arthropathy as described. Spinal canal stenosis ranging up tomoderate to severe at L4-L5. 4. Lateral recess narrowing is most noticeable at L4-L5 and L5-S1. 5. Lateral recess stenosis and additional findings as above. THIS IS AN ELECTRONICALLY VERIFIED FINAL REPORT 11/11/2024 12:03 PM - Electronically signed by Juan Peterson D.O. AP: FÁTIMA Report ID: [id number] Reading Location: [id number] Tali Mueller NP IMG MRI PROCEDURES Final Res ult * Albumin Creatinine Ratio, Urine (10/06/2024 8:25 AM CDT) Creatinine, ur 38 20 - 275 mg/dL [facility] Microalbumin, ur <0.2 See Note: mg/dL [facility] Comment: Reference Range: Reference Range Not established Microalbumin/creat ratio NOTE <30 mg/g creat [facility] Comment: NOTE: The urine albumin value is less than 0.2 mg/dL therefore we are unable to calculate excretion and/or creatinine ratio. The ADA defines abnormalities in albumin excretion as follows: Albuminuria Category Result (mg/g creatinine) Normal to Mildly increased <30 Moderately increased 30-299 Severely increased > OR = 300 The ADA recommends that at least two of three specimens collected within a 3-6 month period be abnormal before considering a patient to be within a diagnostic category. Urine 10/06/2024 8:25 AM CDT 10/06/2024 8:26 AM CDT Narrative [facility] - 10/07/2024 6:28 AM CDT FASTING:YES FASTING: YES Michael Menezes MD LAB URINE ORDERABLES Fi nal Result Performing Organization Address City/[facility]/ZIP Co de Phone Number [facility] [address] [place] [address] * (ABNORMAL) Hemoglobin A1c (10/06/2024 8:25 AM CDT) Hgb A1C 8.3(H) <5.7 % of total Hgb [facility] Comment: For someone without known diabetes, a hemoglobin A1c value of 6.5% or greater indicates that they may have diabetes and this should be confirmed with a follow-up test. For someone with known diabetes, a value <7% indicates that their diabetes is well controlled and a value greater than or equal to 7% indicates suboptimal control. A1c targets should be individualized based on duration of diabetes, age, comorbid conditions, and other considerations. Currently, no consensus exists regarding use of hemoglobin A1c for diagnosis of diabetes for children. Blood 10/06/2024 8:25 AM CDT 10/06/2024 8:26 AM CDT Narrative [facility] - 10/07/2024 6:28 AM CDT FASTING:YES FASTING: YES Michael Menezes MD LAB BLOOD ORDERABLES Fi nal Result [facility] [id number] [place] [address] * (ABNORMAL) Lipid panel (10/06/2024 8:25 AM CDT) Cholesterol 187 <200 mg/dL [facility] HDL 31(L) > OR = 50 mg/dL [facility] Triglycerides 452(H) <150 mg/dL [facility] Comment: If a non-fasting specimen was collected, consider repeat triglyceride testing on a fasting specimen if clinically indicated. Nikki et al. J. of Clin. Lipidol. 2015;9:129-169. LDL mg/dL (calc) [facility] Comment: LDL cholesterol not calculated. Triglyceride levels greater than 400 mg/dL invalidate calculated LDL results. Reference range: <100 Desirable range <100 mg/dL for primary prevention; <70 mg/dL for patients with CHD or diabetic patients with > or = 2 CHD risk factors. LDL-C is now calculated using the Winston-Michelle calculation, which is a validated novel method providing better accuracy than the Friedewald equation in the estimation of LDL-C. Winston MACHADO et al. ALYSIA. 2013;310(19): 1658-0217 (http://education.[employer]/faq/ZBQ237) Chol/HDL ratio 6.0(H) <5.0 (calc) [facility] Non-HDL, (LDL+VLDL) 156(H) <130 mg/dL (calc) [facility] Comment: For patients with diabetes plus 1 major ASCVD risk factor, treating to a non-HDL-C goal of <100 mg/dL (LDL-C of <70 mg/dL) is considered a therapeutic option. Blood 10/06/2024 8:25 AM CDT 10/06/2024 8:26 AM CDT Narrative [facility] - 10/07/2024 6:28 AM CDT FASTING:YES FASTING: YES us Michael Menezes MD LAB BLOOD ORDERABLES Fi nal Result [facility] [address] [place] [address] * (ABNORMAL) Comprehensive metabolic panel (10/06/2024 8:25 AM CDT) Glucose 212(H) 65 - 99 mg/dL [facility] Comment: Fasting reference interval For someone without known diabetes, a glucose value >125 mg/dL indicates that they may have diabetes and this should be confirmed with a follow-up test. BUN 23 7 - 25 mg/dL [facility] Creatinine 0.73 0.60 - 1.00 mg/dL [facility] eGFR 88 > OR = 60 mL/min/1.7 3m2 [facility] BUN/creat ratio SEE NOTE: 6 - 22 (calc) [facility] Comment: Not Reported: BUN and Creatinine are within reference range. Sodium 141 135 - 146 mmol/L [facility] Potassium, pl 4.4 3.5 - 5.3 mmol/L [facility] Chloride 106 98 - 110 mmol/L [facility] CO2 27 20 - 32 mmol/L [facility] Calcium 9.5 8.6 - 10.4 mg/dL [facility] Protein, sr 6.6 6.1 - 8.1 g/dL [facility] Albumin 4.5 3.6 - 5.1 g/dL [facility] GLOBULIN 2.1 1.9 - 3.7 g/dL (calc) [facility] Alb/glob ratio 2.1 1.0 - 2.5 (calc) [facility] Bilirubin, total 0.6 0.2 - 1.2 mg/dL [facility] Alk phos 79 37 - 153 U/L [facility] AST 18 10 - 35 U/L [facility] ALT (SGPT) 22 6 - 29 U/L [facility] Blood 10/06/2024 8:25 AM CDT 10/06/2024 8:26 AM CDT Narrative [facility] - 10/07/2024 6:28 AM CDT FASTING:YES FASTING: YES us Michael Menezes MD LAB BLOOD ORDERABLES Fi nal Result [facility] [address] [place] [address] * Dexa Axial Skeleton Bone Density 1 or 2 Site (05/07/2024 9:00 AM 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) Anatomical Region Laterality Modality Body N/A Other 05/07/2024 3:26 PM 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 Narrative 05/07/2024 3:28 PM 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 EXAM DESCRIPTION: DEXA AXIAL SKELETON BONE DENSITY 1 OR MORE SITES REASON FOR STUDY: 68 y/o year old F with given history of: Postmenopausal status. Compression fracture. Patient has taken/is taking vitamin-D and calcium Publication Specialist/Model: besomebody. [employer] [facility] (S/N [id number]) Facility LSC value of 0.022 for the AP spine, 0.027 for the femur, and 0.023 for the forearm. CLINICAL INFORMATION: Current height: 67 inches Maximum height: 68 inches Weight: 158 pounds Risk factors: Prior fracture and smoking. COMPARISON: None available FINDINGS: AP LUMBAR SPINE L1-L4: Total BMD is 0.956 g/cm2 T-score is -0.8 LEFT HIP: Total BMD is 0.681 g/cm2 T-score is -2.1 Femoral neck BMD is 0.522 g/cm2 T-score is -2.9 FRAX: FRAX not reported due to T-scores of hip, femoral neck and/or spine being at or below -2.5 (Osteoporosis). IMPRESSION: Osteoporosis. REFERENCE: Bone mineral density: T-Score: Normal (T-score above or = -1.0) Low bone mass (T-score between -1.0 and -2.5) replaces the previously used term osteopenia Osteoporosis (T-score = or below -2.5) Z-Score: Within the expected range for age (Z-score above -2.0) Below the expected range for age (Z-score is -2.0 or below) Please see below follow up recommendations. Medical evaluation for secondary causes of low bone mineral density may be appropriate. FRAX is a World Health Organization validated fracture risk assessment tool that calculates a person's 10 year probability of a major osteoporosis related fracture and hip fracture. According to the National Osteoporosis Foundation guidelines, postmenopausal women and men age 50 or older with low bone mass and a 10 year probability of a major osteoporosis related fracture = or greater than 20% or a 10 year probability of a hip fracture = or greater than 3% should be considered for pharmacological treatment for the prevention of osteoporosis. For further information, including treatment recommendations, please refer to the 2019 ISCD Official Positions (http://www.iscd.org) and the NOF's Clinician's Guide to Prevention and Treatment of Osteoporosis (http://www.nof.org/professionals/clinical-guidelines) THIS IS AN ELECTRONICALLY VERIFIED FINAL REPORT 05/07/2024 3:28 PM - Electronically signed by Oma Bernal M.D. TW: Report ID: [id number] Reading Location: [place] [address] Procedure Note Oma Bernal MD - 05/07/2024 EXAM DESCRIPTION: DEXA AXIAL SKELETON BONE DENSITY 1 OR MORE SITES REASON FOR STUDY: 68 y/o year old F with given history of:Postmenopausal status. Compression fracture. Patient has taken/is taking vitamin-Dand calcium Publication Specialist/Model: besomebody. [employer] [facility] (S/N [id number]) Facility LSC value of 0.022 for the AP spine, 0.027 for the femur, and0.023 for the forearm. CLINICAL INFORMATION: Current height: 67 inches Maximum height: 68 inches Weight: 158 pounds Risk factors: Prior fracture and smoking. COMPARISON: None available FINDINGS: AP LUMBAR SPINE L1-L4: Total BMD is 0.956 g/cm2 T-score is -0.8 LEFT HIP: Total BMD is 0.681 g/cm2 T-score is -2.1 Femoral neck BMD is 0.522 g/cm2 T-score is -2.9 FRAX: FRAX not reported due to T-scores of hip, femoral neck and/or spine beingat or below -2.5 (Osteoporosis). IMPRESSION: Osteoporosis. REFERENCE: Bone mineral density: T-Score: Normal (T-score above or = -1.0) Low bone mass (T-score between -1.0 and -2.5) replaces thepreviously used term osteopenia Osteoporosis (T-score = or below -2.5) Z-Score: Within the expected range for age (Z-score above -2.0) Below the expected range for age (Z-score is -2.0 or below) Please see below follow up recommendations. Medical evaluation forsecondary causes of low bone mineral density may be appropriate. FRAX is a World Health Organization validated fracture risk assessmenttool that calculates a person's 10 year probability of a major osteoporosisrelated fracture and hip fracture. According to the National OsteoporosisFoundation guidelines, postmenopausal women and men age 50 or older with low bonemass and a 10 year probability of a major osteoporosis related fracture = or greater than 20% or a 10 year probability of a hip fracture = or greaterthan 3% should be considered for pharmacological treatment for the preventionof osteoporosis. For further information, including treatment recommendations, please referto the 2019 ISCD Official Positions (http://www.iscd.org) and the NOF's Clinician's Guide to Prevention and Treatment of Osteoporosis (http://www.nof.org/professionals/clinical-guidelines) THIS IS AN ELECTRONICALLY VERIFIED FINAL REPORT 05/07/2024 3:28 PM - Electronically signed by Oma Bernal M.D. TW: TW Report ID: [id number] Reading Location: [place] [address] Michael Menezes MD IMG DXA PROCEDURES Jessica l Result * CT Lung Cancer Screening (03/01/2024 8:20 AM 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) Anatomical Region Laterality Modality Chest N/A Computed Tomogra phy 03/03/2024 9:22 AM 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 Narrative 03/03/2024 9:31 AM 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 EXAM DESCRIPTION: CT LUNG CANCER SCREENING REASON FOR STUDY: Screening CT of the chest in a current smoker with a 35 pack year smoking history. Additional history: None. TECHNIQUE: Low dose CT scan of the chest was performed without intravenous contrast using helical scanning technique. The exam extends from the lung apices through the lung bases. Automatic exposure control was used as a dose optimization technique. NOTE: This study was performed for the specific purposes of lung cancer screening and is not an alternative to diagnostic chest CT. RADIATION DOSE: CT dose index volume (CTDIvol) = 1.6 mGy COMPARISON: CT lumbar spine dated 07/04/2022 FINDINGS: SMOKING RELATED LUNG DISEASE: Minimal emphysema, upper lobe predominant. LUNG NODULES: 4 mm juxtapleural nodule medial right lower lobe image 188 of series 3. No suspicious pulmonary nodule. CORONARY ARTERY CALCIFICATION: Present, most evident at the LAD. OTHER: There is no pneumonic consolidation in either lung. Mild subsegmental atelectatic changes. No effusion or pneumothorax. The central airways are patent. Visualized thyroid gland is unremarkable. There is no mediastinal lymphadenopathy. Node anterior to the right mainstem bronchus measures 8 mm short axis. The esophagus is unremarkable. The heart is normal in size without pericardial effusion. Thoracic aorta is normal in caliber. Main pulmonary trunk normal in caliber. No axillary lymphadenopathy. There is somewhat dense fibroglandular breast parenchyma bilaterally. Would ensure patient is up-to-date with screening mammography. The visualized upper abdomen reveals mild nodular thickening of the left adrenal gland. Nodule on image number 271 measures 1 cm in size. Hounsfield units are greater than 10, making this nodule technically indeterminate. Atherosclerotic calcifications of the aorta are noted. There is a compression deformity at the superior endplate of L1, which has increased compared to the prior study on 07/04/2022. There is mild anterior wedging of the superior endplate of T11, favored to be chronic. Multilevel degenerative disc disease noted. IMPRESSION: Minimal emphysema, upper lobe predominant. 4 mm juxtapleural nodule in the right lower lobe. No suspicious pulmonary nodule. Coronary artery calcifications. Compression deformity at the superior endplate of L1, increased compared to the prior study on 07/04/2022. Correlate with any interval trauma and any point tenderness on clinical exam. MRI can be utilized for further assessment as warranted clinically.. Mild anterior wedging of the superior endplate of T11, favored to be chronic. Additional findings as above. Lung-RADS category 2S: Benign appearance or behavior. Finding other than a pulmonary nodule which is potentially clinically significant. Recommendation: Low dose Screening CT of chest in 12 months. See above recommendations regarding findings at L1 THIS IS AN ELECTRONICALLY VERIFIED FINAL REPORT 03/03/2024 9:31 AM - Electronically signed by Oma Bernal M.D. TW: RASTA Report ID: [id number] Reading Location: [id number] Michael Menezes MD IMG CT PROCEDURES Final Result * (ABNORMAL) Diabetic Eye Exam (07/27/2023) Generic External Data Provider [facility] MAINTENANC E Final Result * SCREENING MAMMOGRAM BILATERAL W ANGELITO (05/12/2023 8:48 AM PR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) Anatomical Region Laterality Modality Breast Bilateral Mammography 05/12/2023 2:15 PM PR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 Impressions 05/12/2023 2:15 PM PR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 There is no mammographic evidence of malignancy. A 1 year screening mammogram is recommended. BI-RADS: 1 - Negative. The patient has been or will be contacted. The patient will be entered into a reminder system with a target due date of 1 year for her next mammogram. Electronically signed by: Roxi Mak M.D. Narrative 05/12/2023 2:15 PM PR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 EXAMINATION: SCREENING MAMMOGRAM BILATERAL W ANGELITO ORDERING HEALTHCARE PROVIDER: MICHAEL MENEZES HISTORY: Routine screening mammography. COMPARISON: 10/04/2021, 09/13/2020, 06/04/2019, 04/03/2018 TECHNIQUE: CC and MLO views of the bilateral breasts were obtained with digital technique using breast tomosynthesis with C view. Computer aided detection was utilized. FINDINGS: DENSITY: There are scattered fibroglandular elements in the bilateral breasts. BREASTS: There are no suspicious masses, suspicious calcifications, or other suspicious findings in either breast. There has been no suspicious interval change. Michael Menezes MD IMG MAMMO PROCEDURES Fi nal Result * DIABETES FOOT EXAM (08/22/2019) Diabetic Foot Exam Abnormal Historical Provider HEALTH MAINTENANCE Final Result * COLONOSCOPY IMAGES (07/01/2015) Anatomical Region Laterality Modality Other Narrative 07/01/2015 Ordered by an unspecified provider. Historical Provider GI PROCEDURE ORDERABLES F inal Result * Serum Hepatitis panel (04/06/2014 5:26 AM PR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) HBV surface ag Negative Negative HISTO RICAL RESULTS HBV core ab, IgM Negative Negative HISTORICAL RESULTS HCV ab Negative Negative HISTORICAL RESULTS HAV ab, IgM Negative Negative HISTORIC AL RESULTS Serum 04/06/2014 5:26 AM PR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 Isai Cortes MD LAB BLOOD ORDERABLES Final Result HISTORICAL RESULTS from Last 3 Months or Most Recently Relevant to Health Maintenance Insurance [facility] MEDICARE T MEDICARE AET[employer] MEDICARE Care Teams Soils Analyst Relationship Specialty Start Date End Date Michael Menezes MD PCP - General 06/16/16 Irene Steiner NP Nurse Practitioner Endocrinology Diabetes & Metabolism 01/19/20
--- OUTSIDE RECORDS SUMMARY | 2025-01-23 07:48 | XMS_ITS | Encounter Summary ---
Author Organization [facility] Address [address] [place] [address] Care Team Providers Care Piped Buttonhole Machine Operator Name Role Phone Jose Manuel Nance MD Primary Care Provider Jose Manuel Nance MD Primary Care Provider Irene Steiner SCUBA INSTRUCTOR Unavailable [phone] Reason for Referral * Diagnostic Imaging (Routine) - Closed Specialty Diagnoses / Procedures Referred By Contac t Referred To Contact Procedures Dexa Axial and Forearm Bone Density Scan [facility] [place] [facility] Health Information Management [address] [place] [id number] Phone: tel: fax: [facility] Referral ID Status Reason Start Date Expiration Date Visits Re quested Visits Authorized [id number] Closed 08/14/2018 02/23/2020 1 1 Encounter Details Date Type Department Care Team (Late st Contact Info) Description 06/08/2010 Orders Only [facility] Health Information Management [address] [place] [id number] Jose Manuel Nance MD [address] [place] [address] [place] [address] Social History Tobacco Use Types Packs/Day Years Used Date Smoking Tobacco: Never Assessed Comments Unknown Sex and Gender Information Value Date Recorded Sex Assigned at Not on file 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 Gender Identity Not on file Sexual Orientation Not on file documented as of this encounter Plan of Treatment Not on file documented as of this encounter Procedures Procedure Name Priority Date/Time Associated Diagnosis Comments DEXA AXIAL AND FOREARM BONE DENSITY SCAN Schedule Routine, Read Routine (OP Routine) 06/08/2010 documented in this encounter Results * Dexa Axial and Forearm Bone Density Scan (06/08/2010) Anatomical Region Laterality Modality Wrist, Body N/A Radiographic Nellie ging Historical Provider MD DOZIER DXA PROCEDURES Final Result documented in this encounter Visit Diagnoses Not on filedocumented in this encounter Care Teams Piped Buttonhole Machine Operator Relationship Specialty Start Date End Date Jose Manuel Nance MD PCP - General 06/16/16 Jose Manuel Nance MD PCP - General 04/01/08 06/15/16 Irene Steiner NP Nurse Practitioner Endocrinology Diabetes & Metabolism 01/19/20 documented as of this encounter
--- NOTE | 2025-01-23 08:57 | ECG_ITS ---
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
[2025-01-23 10:52] LABS: Hematocrit 45.2 % (37.0-47.0); Hemoglobin 14.7 g/dL (12.0-15.0); Mean Corpuscular HGB Conc 32.5 g/dl (32-36); Mean Corpuscular Hemoglobin 29.8 pg (26-34); Mean Corpuscular Volume 91.5 fl (80-100); Platelet Count Result 309 k/mm3 (150-375); Red Blood Count 4.94 M/mm3 (4.2-5.4); White Blood Count 9.5 K/mm3 (4.5-10.0)
[2025-01-23 10:54] LABS: Add Urine Microscopic? NO; Appearance Urine Clear (Clear); Glucose Urine UA 3+ mg/dL (Negative); Leukocyte Esterase Ur Negative LEU/UL (Negative); Nitrate Urine Negative (Negative); Specific Grav Ur 1.039 (1.001-1.035)
[2025-01-23 11:02] LABS: Hemoglobin A1C 6.8 % (<5.7)
[2025-01-23 11:05] LABS: INR 0.9; Prothrombin Time 12.5 Seconds (11.1-14.7)
[2025-01-23 11:07] LABS: Anion Gap 11 mmol/L (4-12); Blood Urea Nitrogen 22 mg/dL (7-17); Calcium 9.3 mg/dL (8.4-10.2); Carbon Dioxide 25 mmol/L (22-30); Chloride 105 mmol/L (98-107); Estimated Glomerular Filt Rate > 60; Glucose 134 mg/dL (65-110); Partial Thromboplastin Time 24.4 Seconds (22.3-36.8); Potassium 3.7 mmol/L (3.4-5.0); Sodium 141 mmol/L (137-145)
== END 2025-01-23 07:42 | disposition home or self-care (01) ==
LOC: ANHSURGERY 07:46
PROVIDERS: PCP Internal Medicine; Visit Provider Neurological Surgery
DX: Z01.818 Encounter for other preprocedural examination (principal); M51.16 Intervertebral disc disorders with radiculopathy, lumbar region
CPT/HCPCS: 36415; 71046; 80048; 81003; 83036; 85027; 85610; 85730; 93005

== ENCOUNTER 2025-03-10 07:26 | Outpatient (CLI) | payer MEDICARE, SELFPAY ==
--- NOTE | ~2025-03-10 | NM_ITS ---
EXAMINATION: NM nichelle stress w perfusion DATE: 03/10/2025 10:17 INDICATION: Encounter for preprocedural cardiovascular examination TECHNIQUE: Rest images were obtained following intravenous administration of 12.2 mCi Tc99m tetrofosmin (Myoview). The patient was infused intravenously with Lexiscan (Regadenoson). Then, 34.9 mCi Tc99m tetrofosmin (Myoview) was administered intravenously, and stress images were obtained. Data was myles nstructed into short axis and horizontal and vertical long axis SPECT images. Gated SPECT images were also obtained. COMPARISON: None. FINDINGS: Moderate-sized moderate severity perfusion defect at the apical, apical anterior and apical septal segments which is largely nonreversible consistent with infarct with minimal reversibility at the apical anterior and apical septal segments consistent with mild superimposed ischemia. There is normal left ventricular chamber size, wall motion and ejection fraction. Left ventricular ejection fraction measures 65%. IMPRESSION: 1. Mild ischemia at the apical anterior and apical lateral segments superimposed over a moderate-sized moderate severity infarct involving both segments as well as the apical segment. 2. Left ventricular ejection fraction measuring 65%. Reviewed, dictated and finalized at location A. THERAPIST IMPRESSION: 1. Mild ischemia at the apical anterior and apical lateral segments superimpose d over a moderate-sized moderate severity infarct involving both segments as we ll as the apical segment. 2. Left ventricular ejection fraction measuring 65%.
--- OUTSIDE RECORDS SUMMARY | 2025-03-10 07:30 | XMS_ITS | Encounter Summary ---
Author Organization [facility] Address [address] [facility] [address] [place] [address] Care Team Providers Care Cut Off Operator Scorer Name Role Phone Jose Manuel Nance MD Primary Care Provider Jose Manuel Nance MD Primary Care Provider Irene Steiner INTERACTIVE DIGITAL MEDIA SPECIALIST Unavailable [phone] Reason for Referral * Diagnostic Imaging (Routine) - Closed Specialty Diagnoses / Procedures Referred By Contac t Referred To Contact Procedures Dexa Axial and Forearm Bone Density Scan [facility] [place] Health Information Management [address] [place] [address] Phone: tel: fax: [facility] Referral ID Status Reason Start Date Expiration Date Visits Re quested Visits Authorized [id number] Closed 08/14/2018 02/23/2020 1 1 Encounter Details Date Type Department Care Team (Late st Contact Info) Description 06/08/2010 Orders Only [facility] Health Information Management [address] [place] [id number] Jose Manuel Nance MD [address] [place] [address] [place] [address] Social History Tobacco Use Types Packs/Day Years Used Date Smoking Tobacco: Never Assessed Comments Unknown Sex and Gender Information Value Date Recorded Sex Assigned at Not on file 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
--- OUTSIDE RECORDS SUMMARY | 2025-03-10 07:30 | XMS_ITS | Clinical Summary ---
Author Organization [facility] Address [address] [place] [address] Care Team Providers Care Car Attendant Name Role Phone Michael Nance MD Primary Care Provider Irene Steiner LIEUTENANT FIRE[employer]TER Unavailable [phone] Allergies Active Allergy Reactions Criticality Noted [...] days 6 each 3 03/27/19 24 Active gabapentin (NEURONTIN) 300 mg capsule Take [...] the skin once a week 2 mL 11 10/10/19 25 Active cyclobenzaprine (FLEXERIL) 10 mg [...] BREAKFAST 180 tablet 3 12/30/19 25 Active PARoxetine (PAXIL) 20 mg tablet TAKE 1 TABLET (20 MG TOTAL) BY MOUTH EVERY MORNING NOTE LOWER DOSE 100 tablet 1 02/29/20 25 Active PARoxetine (PAXIL) 20 mg tablet Take 1 tablet (20 mg total) by mouth every morning Note lower dose 90 tablet 3 01/16 025 Discontinued Active Problems Problem Noted Date Diagnosed Date History of acute anterior wall CA 01/30/2025 Assessment & Plan (01/30/2025 12:28 PM CASHIER CREDIT): Status post insertion of manuel g-eluting stent into left anterior descending artery 01/30/2025 Assessment & Plan (01/30/2025 12:28 PM CASHIER CREDIT): Lumbar disc disease with radiculopathy Assessment & Plan (01/30/2025 12:28 PM CASHIER CREDIT): 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 [...] III Assessment & Plan (05/21/2024 1:00 PM CASHIER CREDIT): Doxycycline twice daily for 3 weeks, avoid [...] needed Assessment & Plan (05/11/2022 9:20 AM CASHIER CREDIT): Direct laryngoscopy with biopsy of Right tonsillar [...] needed Assessment & Plan (05/11/2022 9:20 AM CASHIER CREDIT): Direct laryngoscopy with biopsy of Right tonsillar [...] in our office for certainly consultation to gynecologist. DEXA ordered today in clinic DM-annual visual examination with the garment manufacturing supervisor and licensed esthetician detailed above, declines need for podiatry consultation [...] annual CP with labs prior to visit. Past use of tobacco 08/26/2018 Assessment & Plan (01/30/2025 12:28 PM CASHIER CREDIT): Assessment & Plan (09/03/2019 12:06 PM CDT): [...] without prior episode 08/26/2018 Assessment & Plan (01/30/2025 12:28 PM CASHIER CREDIT): Assessment & Plan (10/09/2024 10:36 AM CDT): Cervical radiculopathy 02/19/2017 Atopic rhinitis 08/02/2013 Overview (06/21/2016): ALLERGIC RHINITIS NOS Hypertension associated with diabetes 08/02/2013 Overview (06/22/2016): BENIGN HYPERTENSION Assessment & Plan (01/30/2025 12:28 PM CASHIER CREDIT): Assessment & Plan (10/09/2024 10:36 AM CDT): [...] Overview (06/22/2016): HYPERLIPIDEMIA NEC/NOS Assessment & Plan (01/30/2025 12:28 PM CASHIER CREDIT): Assessment & Plan (10/09/2024 10:36 AM CDT): [...] which is not at goal. Reviewed labs. (.) Trig- 192, LDL- 110. Repeat lipid panel [...] medications as prescribed. Type 2 diabetes mellitus, [facility] long-term current use of insulin 08/26/2018 04/03/2024 [...] No history of macrovascular disease - CVA, CA. Assessment & Plan (06/28/2021 10:23 AM CDT): [...] basis. Assessment & Plan (03/29/2021 10:11 AM CASHIER CREDIT): This is a chronic condition which is at goal. Personally reviewed A1c today- 7% at goal less than 7% Medication- Continue Ozempic 1mg weekly, Continue Metformin 1000mg daily, add Jardiance 10mg daily. Monitor blood sugar 2 times a day. Encouraged annual eye exam. last dilated eye exam was 720 Monofilament foot exam completed, protective senses intact, [...] No history of macrovascular disease - CVA, CA. Assessment & Plan (12/03/2020 9:58 AM CDT): [...] No history of macrovascular disease - CVA, CA. Assessment & Plan (09/02/2020 10:19 AM CDT): [...] No history of macrovascular disease - CVA, CA. Assessment & Plan (07/22/2020 10:59 AM CDT): [...] No history of macrovascular disease - CVA, CA. Assessment & Plan (09/03/2019 12:03 PM CDT): [...] to check her blood sugar. A sample DoubleVerify yahaira continues glucose monitor was placed in [...] p.o. daily She has a history of CA in the past. EGRF 11/27/2018 87 Type 2 diabetes mellitus 08/02/201312/2018 Overview (06/22/2016): DMII WO CMP NT ST UNCNTR Conjunctivitis 11/15/2011 08/22/2019 Overview (06/22/2016): Conjunctivitis NOS Encounters Date Type Department Care Team Description 03/09/2025 Orders Only [facility] Medicine Oncology [address] [place] [address] Floor 6 [place] [address] Aaliyah Nix MD Lymphoproliferative disorder (HCC) (Primary Dx) 03/06/2025 Orders Only [facility] Medicine Otolaryngology Head-Neck Division [address] [place] [address] Floor 5 [place] [address] Valentine Syed PA Lymphoproliferative disorder (HCC) (Primary Dx) 03/03/2025 Telephone [facility] Accountable Care Organization [address] [place] [id number] Deedee David MA Successful Phone Call ([employer] DM eye exam ) 03/02/2025 9:25 AM CASHIER CREDIT - 03/02/2025 11:59 PM CASHIER CREDIT Hospital Encounter [facility] [address] [place] [address] Cervical lymphadenopathy Discharge Disposition: Discharge to home or self care 02/25/2025 Orders Only [facility] Medical Group Primary Care at [address] [address] Michael Nance MD Abnormal EKG (Primary Dx); Preop testing 02/18/2025 Telephone [facility] Radiology [address] [place] [address] Mayra Rees RN 02/16/2025 10:00 AM CASHIER CREDIT Office Visit [facility] Otolaryngology Head-Neck Division [address] [facility] [place] [address] [place] [address] Valentine Syed PA Cervical lymphadenopathy (Primary Dx); Neoplasm of lymph node of neck 02/16/2025 8:21 AM CASHIER CREDIT - 02/16/2025 11:59 PM CASHIER CREDIT Hospital Encounter [facility] [address] [place] [address] Logan Dove MD Neoplasm of lymph node of neck Discharge Disposition: Discharge to home or self care 02/02/2025 Telephone [facility] Primary Care at [address] [address] Michael Nance MD Additional Services Or Orders; Medical Question/Miscellaneous 01/30/2025 10:30 AM CASHIER CREDIT Office Visit [facility] Medical [facility] Primary Care at [address] [address] Michael Nance MD Preop exam for internal medicine (Primary Dx); BMI 27.0-27.9,adult; Mixed hyperlipidemia; Hypertension associated with diabetes (HCC); Current moderate episode of major depressive disorder without prior episode (HCC); Past use of tobacco; History of acute anterior wall CA; Status post insertion of drug-eluting stent into left anterior descending artery; Lumbar disc disease with radiculopathy 01/28/2025 Telephone [facility] Primary Care at [address] [place] [address] Michael Nance MD Appointment Request 01/23/2025 Orders Only [facility] [address] [place] [address] Michael Nance MD 01/23/2025 Telephone [facility] Primary Care at [address] [place] [phone] Michael Nance MD 01/02/2025 Telephone [facility] Medicine Otolaryngology [address] [place] [address] Yancy Ventura MS 12/09/2024 10:58 AM CDT - 12/09/2024 11:59 PM CDT Hospital Encounter [facility] [address] [place] [address] [address] [place] [address] Jose Diop MD Lumbar radiculopathy (Primary Dx); Spinal stenosis of lumbar region with neurogenic claudication Discharge Disposition: Discharge to home or self care from Last 3 Months Immunizations Immunization Administration Dates Next Due Influenza, Quadrivalent, Hig h Dose, Preservative Free, Intrr 03/27/2023,03/09/2022,03/01/2021,02/25 Influenza, Quadrivalent, Spl it, Preservative Free, Intradermal 02/03/2016 Influenza, Quadrivalent, Spl it, Preservative Free, Intramuscular 02/22/2018,02/19/2017 Influenza, Trivalent, High D ose, Split, Preservative Free, Intramuscular 01/30/2025,02/01/2024 Influenza, Trivalent, IM (MDV) 12/26/2012 Influenza, Unspecified 04/10/2019(Deferr ed: Patient Refused),12/17/2018(Deferred: Patient Refused),12/09/2018(Deferred: Patient Refused) Moderna SARS-CoV-2 Monovalen t Vaccination (12+ YRS) 05/25/2020,04/21/2020 Pneumococcal Conjugate PCV 13 08/26/2018 Pneumococcal Polysaccharide PPV23 08/27/2020 Surgical History Surgery Date Site/Laterality Comments OTHER SURGICAL HISTORY 03/19/2011 - 03/18/2012 Cellulitis & Shingles: [facility] ER visit 03/02/12 BREAST BIOPSY 1980s Right benign surgical bx, no scar CORONARY ANGIOPLASTY WITH STENT PLACEMENT 1 stent TONSILLECTOMY AND ADENOIDECTOMY TUBAL LIGATION US GUIDED BIOPSY LYMPH NODE SUPERFICIAL LEFT 04/25/2024 N/A COLONOSCOPY US GUIDED BIOPSY LYMPH NODE SUPERFICIAL LEFT 03/02/2025 N/A Medical History Medical History Date Comments Hx Other Medical 2006 Cyst removal fr om groin 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 Hx Other Medical 2011 Cellulitis & Sh ingles Hx Other Medical er 2 times and dx with GERD; Comments: [facility] 04/10/2014 - Hx Other Medical stent placement ; Comments: [facility] 04/10/2014 - Hx Other Medical er heart attack ; Comments: [facility] 04/10/2014 - Fibrocystic breast Breast cyst Mixed [...] -Para nasal sinus Breast cancer Mother's Sister olive Relation Name Status Comments Father (Age 49) Mother (Age 42) Mother's Sister olive Social History Tobacco Use Types Packs/Day Years Used Date Smoking Tobacco: Former Cigarettes 1 35 1 990 - 2024 Smokeless Tobacco: Never Tobacco Cessation:Counseling [...] points, staff should administer the PHQ-9) 0 01/30/2025 PHQ-9 Answer Date Recorded PHQ-9 Total Score 1 07/15/2024 Personal Safety Answer Date Recorded Have you ever been in or are you currently in a harmful physical or emotional relationship or is someone making you feel afraid or unsafe? Denies 04/25/2024 Comments No Sex and Gender Information Value Date Recorded Sex Assigned at Not on file Legal Sex Female 11:52 PM CASHIER CREDIT Gender Identity Not on file Sexual Orientation Not on file Obstetrics History Para Term AB IAB SAB Ectopic Multiple Livin g Live Births 1 1 1 Date Outcome GA Total Labor Labor/2nd/3rd Weight Sex Type Anes PTL Farzana A1 A5 Name Clin Term Last Filed Vital Signs Vital Sign Reading Time Taken Comments Blood Pressure 130/82 01/30/2025 10:29 AM CASHIER CREDIT Pulse 76 01/30/2025 10:29 AM CASHIER CREDIT Temperature 36.9 C (98.4 F) 01/30/2025 10:29 AM CASHIER CREDIT Respiratory Rate 16 01/30/2025 10:29 AM CASHIER CREDIT Oxygen Saturation 98% 01/30/2025 10:29 AM CASHIER CREDIT Inhaled Oxygen Concentration - - Weight 73.3 kg (161 lb 9.6 oz) 02/16/2025 10:21 AM CASHIER CREDIT Height 165.1 cm (5' 5) 01/30/2025 10:29 AM CASHIER CREDIT Body Mass Index 26.89 01/30/2025 10:29 AM CASHIER CREDIT Plan of Treatment Health Maintenance Due Date Last Done Comments Hepatitis B Screening 1972 Zoster Vaccine (1 of 2) 2004 Breast Cancer Screening-Mammogram 05/12/2024 05/12/2023, 10/04/2021, 09/13/2020, Additional history exists Dilated Eye Exam 07/26/2024 07/27/2023, 10/2022, 10/06/2019, Additional history exists Covid-19 Vaccine ( season) 2024 01/26/2021, 05/25/2020, 04/21/2020 Lung Cancer Screening 03/02/2025 03/01/2024 Well Visit 65+ 04/03/2025 04/03/2024, 11/2023, 09/06/2021, Additional history exists Hemoglobin A1C 04/08/2025 10/06/2024, 03/19, 09/17/2023, Additional history exists Colon Cancer Screening-Colonoscopy 06/30/2025 07/01/2015, 07/01/2015 Albumin Creatinine Ratio, Urine 10/06/2025 10/06/2024, 09/17/2023, 09/11/2022, Additional history exists Lipid Panel 10/06/2025 10/06/2024, 03/19, 09/17/2023, Additional history exists eGFR 10/06/2025 10/06/2024, 05/18, 05/08/2024, Additional history exists DTaP/Tdap/Td Vaccine (1 - Tdap) 10/11/2025 Postponed from 1965 (Patient declined, but will receive in the future) Depression Screening 01/30/2026 01/30/2025, 10/09/2024, 07/15/2024, Additional history exists Fall Risk Assessment 01/30/2026 01/30/2025, 10/09/2024, 06/18/2024, Additional history exists Foot Exam 01/30/2026 01/30/2025, 09/17, 04/03/2024, Additional history exists Osteoporosis Screening-Bone Density Scan 05/07/2026 05/07/2024, 03/10/2021, 06/08/2010, Additional history exists Hepatitis C Screening Completed 04/06/2014 Colon Cancer Screening-CT Colonography Discontinued 07/01/2015, 07/01/2015 Colon Cancer Screening-DNA Stool Discontinued 07/01/2015, 07/01/2015 Colon Cancer Screening-FIT Discontinued 07/01/2015, Colon Cancer Screening-Sigmoidoscopy Discontinued 07/01/2015, 07/01/2015 Pneumococcal vaccine 65+ Completed 08/27/2020, 08/17 Influenza Vaccine Completed 01/30/2025, , 03/27/2023, Additional history exists Procedures Procedure Name Priority Date/Time Associated Diagnosis Comments US GUIDED BIOPSY LYMPH NODE SUPERFICIAL RIGHT Schedule Routine, Read Routine (OP Routine) 03/02/2025 11:20 AM CASHIER CREDIT Cervical lymphadenopathy FLOW LEUKEMIA/LYMPHOMA Routine 03/02/2025 10:38 AM CASHIER CREDIT SURGICAL PATHOLOGY Routine 03/02/2025 10:37 AM CASHIER CREDIT Cervical lymphadenopathy CT SOFT TISSUE NECK WO CONTRAST Schedule Routine, Read Routine (OP Routine) 02/16/2025 10:10 AM CASHIER CREDIT Neoplasm of lymph node of neck SCAN - LABS 01/23/2025 SCAN - RADIOLOGY/IMAGING 01/23/2025 COMPREHENSIVE METABOLIC PANEL Routine 10/06/2024 8:25 AM [...] Read Routine (OP Routine) 05/07/2024 9:00 AM CASHIER CREDIT Compression fracture of first lumbar vertebra with routine healing Osteoporosis, unspecified osteoporosis type, unspecified pathological fracture presence CT LUNG CANCER SCREENING Schedule Routine, Read Routine (OP Routine) 03/01/2024 8:20 AM CASHIER CREDIT Personal history of nicotine dependence DIABETIC EYE EXAM Routine 07/27/2023 SCREENING MAMMOGRAM BILATERAL W ANGELITO Schedule Routine, Read Routine (OP Routine) 05/12/2023 8:48 AM CASHIER CREDIT Visit for screening mammogram HM DIABETES FOOT EXAM Routine 08/22/2019 COLONOSCOPY IMAGES 07/01/2015 SERUM HEPATITIS PANEL Routine 04/06/2014 5:26 AM CASHIER CREDIT from Last 3 Months or Most Recently Relevant to Health Maintenance Results * US Guided Biopsy Lymph Node Superficial Right (03/02/2025 11:20 AM CASHIER CREDIT) Anatomical Region Laterality Modality Entire body N/A Ultrasound 03/02/2025 11:5 9 AM CASHIER CREDIT Impressions 03/02/2025 12:32 PM CASHIER CREDIT 1. Successful ultrasound-guided core needle biopsy of the right level 2 lymph node. 2. Please see separate Surgical Pathology results for final interpretation. Dictated by: Nba Muniz M.D. The radiology attending physician has personally reviewed this study, and had reviewed and/or edited this written report and agrees with it. Electronically signed by: Hannah Lorenzo PA-C Narrative 03/02/2025 12:32 PM CASHIER CREDIT EXAMINATION: ULTRASOUND-GUIDED CORE BIOPSY HISTORY: 69-year-old female with cervical lymphadenopathy COMPARISON: CT neck 02/16/2025 FINDINGS: Within the right level 2 lymph node station, there are multiple enlarged lymph nodes measuring up to 2.8 x 1.2 cm. TECHNIQUE: The procedure for ultrasound-guided core biopsy was explained to and discussed with the patient. Risks were explained to include, but not be limited to, hemorrhage, infection, injury to adjacent organs, non-diagnostic specimen and adverse reaction to medications administered. The patient voiced understanding and wished to proceed and signed the consent form. PROCEDURAL SEDATION: Local anesthesia only. CORE BIOPSY: The lymph node was located in right level 2 lymph node station and measured 2.8 cm x 1.2 cm. An appropriate site was localized for core biopsy. The patient's overlying skin was prepped and draped in the usual sterile fashion. Local anesthesia was achieved via subcutaneous and deep administration with 10 mL of Lidocaine 1%. Under realtime ultrasound guidance, 5 passes were made with an 18 gauge Corvocet core biopsy needle, 1.2 cm throw, with the use of a 17 gauge introducer needle. The core specimens were placed in formalin and RPMI then submitted to the software client architect service for delivery to Surgical Pathology. No tract embolization was performed. The patient's skin was cleaned and dressed. The patient tolerated the entire procedure well without immediate complications. Hannah Lorenzo PA-C, was present from the beginning to the end of the procedure. Hannah Lorenzo PA-C and Dr. Nba Muniz M.D. performed the biopsy. Dr. Nba Muniz M.D. (vice president of software development) personally participated in sonographic imaging of this patient. Procedure Note Hannah Lorenzo PA - 03/02/2025 EXAMINATION: ULTRASOUND-GUIDED CORE BIOPSY HISTORY: 69-year-old female with cervical lymphadenopathy COMPARISON: CT neck 02/16/2025 FINDINGS: Within the right level 2 lymph node station, there are multiple enlarged lymph nodes measuring up to 2.8 x 1.2 cm. TECHNIQUE: The procedure for ultrasound-guided core biopsy was explained to and discussed with the patient. Risks were explained to include, but not be limited to, hemorrhage, infection, injury to adjacent organs, non-diagnostic specimen and adverse reaction to medications administered. The patient voiced understanding and wished to proceed and signed the consent form. PROCEDURAL SEDATION: Local anesthesia only. CORE BIOPSY: The lymph node was located in right level 2 lymph node station and measured 2.8 cm x 1.2 cm. An appropriate site was localized for core biopsy. The patient's overlying skin was prepped and draped in the usual sterile fashion. Local anesthesia was achieved via subcutaneous and deep administration with 10 mL of Lidocaine 1%. Under realtime ultrasound guidance, 5 passes were made with an 18 gauge Corvocet core biopsy needle, 1.2 cm throw, with the use of a 17 gauge introducer needle. The core specimens were placed in formalin and RPMI then submitted to the software client architect service for delivery to Surgical Pathology. No tract embolization was performed. The patient's skin was cleaned and dressed. The patient tolerated the entire procedure well without immediate complications. Hannah Lorenzo PA-C, was present from the beginning to the end of the procedure. Hannah Lorenzo PA-C and Dr. Nba Muniz M.D. performed the biopsy. Dr. Nba Muniz M.D. (vice president of software development) personally participated in sonographic imaging of this patient. IMPRESSION: 1. Successful ultrasound-guided core needle biopsy of the right level 2 lymph node. 2. Please see separate Surgical Pathology results for final interpretation. Dictated by: Nba Muniz M.D. The radiology attending physician has personally reviewed this study, and had reviewed and/or edited this written report and agrees with it. Electronically signed by: Hannah Lorenzo PA-C us Valentine [facility] IMG US PROCEDURES Final Result * Flow Leukemia/Lymphoma Lymph node (03/02/2025 10:38 AM CASHIER CREDIT) Oliver Stain Test Completed Leukemia/Lymp michael Result See separate Surgical Pathology report. [facility] Lymph node 03/02/2025 10:3 8 AM CASHIER CREDIT 03/02/2025 2:01 PM CASHIER CREDIT us Valentine IVEY LAB PATHOLOGY ORDERABLE S Final Result [facility] Department [place] [address] * Surgical pathology (03/02/2025 10:37 AM CASHIER CREDIT) Tissue (Lymph node, needle biopsy) 03/02/2025 10:37 AM CASHIER CREDIT Comment:US guided RT LVL II cervical lymph node core bx Rule out lymphoma Tissue specimen (specimen) (Lymph node, needle biopsy) 03/02/2025 10:38 AM CASHIER CREDIT Comment:US guided RT LVL II cervical lymph node core bx Rule out lymphoma Narrative PATHOLOGY [facility] - 03/04/2025 3:58 PM CASHIER CREDIT EPIC results best viewed via link to PDF [facility] [place] [address] Note to Patients: This report may contain a detailed description of human tissue sent by a health care provider to the laboratory for pathologic evaluation. The content of this report is essential for diagnosis and may provide important critical findings. This information may be unfamiliar to patients to review without a medical professional present. It is advised that the patient review this report in the presence of a health care provider who can answer questions and explain the details. SURGICAL PATHOLOGY REPORT FINAL Patient Name: PELON PARKS Gender: F : 1955 (Age: 69) Address: [address] [place] [address] Hospital #: [id number] Taken:03/02/2025 Received:03/02/2025 Reported: 03/04/2025 Patient Type: [facility] Ancillary Service: Laboratory Location: Physician(s): MD Dr. Michael Olmstead M.D. Diagnosis: A. Right level II cervical lymph node, core biopsy: - MICHELLE+ lymphoproliferative disorder - Scattered markedly atypical large cells in a prominent histiocytic background - See Comment B. Right level II cervical lymph node, flow cytometry: - To be reported in addendum axc/03/04/2025 15:58 By this signature, I attest that the above diagnosis is based upon my personal examination of the slides(and/or other material indicated in the diagnosis). Ami Parada M.D. Report Electronically Reviewed and Signed Out By Ami Parada M.D. 03/04/2025 15:58:49 Diagnosis Comment Comment: The differential includes classic Hodgkin lymphoma, EBV+ diffuse large B cell lymphoma, and less likely, T cell lymphoma. If clinically indicated, excisional biopsy with fresh tissue for flow cytometry may be considered. Microscopic Description and Comment: Sections show a prominent histiocytic proliferation with scattered atypical large nucleolated cells with Hodgkinoid features. The large cells are positive for CD30, CD15, PAX5(dim) and MICHELLE KALIE but also show varying expression for CD20 and OCT2. CD43, CD3, CD2, CD4, CD5, CD7 and CD8 show T cells without overt abnormality. CK is negative. CD45 shows many cells. MUM1 and BCL6 show scattered cells, respectively. AFB, Susan and GMS show no diagnostic microbial elements. The case was also reviewed by Dr. Anya Sterling. History: The patient is a 69-year-old woman presenting with cervical lymphadenopathy. Specimen(s) Received: A: Rt lvl ii cervical lymph node core bx B: Rt lvl ii cervical lymph node core bx Gross Description: Received in a single formalin-filled container labeled with the patient's name and right level II cervical lymph node core biopsy are four cores of soft epps- white tissue (0.2 to 0.9 cm in length by 0.1 cm in diameter). Wrapped. Labeled A1-A2. Jar 0. emg/03/02/2025 16:28 PA(s): Cristina Reis, MS, PA ([facility])CM By this signature, I attest that the above diagnosis is based upon my personal examination of the slides(and/or other material). Addenda/Procedures The performance characteristics of some immunohistochemical stains, fluorescence in-situ hybridization tests and immunophenotyping by flow cytometry cited in this report (if any) were determined by the Surgical Pathology and Flow Cytometry Departments at [facility] as part of an ongoing quality control representative program and in compliance with federally mandated regulations drawn from the Clinical Laboratory Improvement Act of 1988 (CLIA '88). Some of these tests rely on the use of analyte specific reagents and are subject to specific labeling requirements by the US Food and Drug Administration. Such diagnostic tests may only be performed in a facility that is certified by the Department of Health and Human Services as a high complexity laboratory under CLIA '88. The FDA has determined that such clearance or approval is not necessary. This test is used for clinical purposes. It should not be regarded as investigational or for research. Nevertheless, federal rules concerning the medical use of analyte specific reagents require that the following disclaimer be attached to the report: This test was developed and its performance characteristics determined by the Surgical Pathology and Flow Cytometry Departments of [facility]. It has not been cleared or approved by the U. S. Food and Drug Administration. IMAGES AND SCANNED DOCUMENTS, IF INCLUDED, ONLY VIEWABLE IN PDF VERSION OF REPORT Nba Muniz MD LAB PATHOLOGY ORDERABLES F inal Result PATHOLOGY [facility] [address] [place], [place] [phone] * CT Neck Soft Tissue WO Contrast (02/16/2025 10:10 AM CASHIER CREDIT) Anatomical Region Laterality Modality Head and Neck N/A Computed Tomogra phy 02/16/2025 1:21 PM CASHIER CREDIT Impressions 02/17/2025 7:46 AM CASHIER CREDIT 1. Interval enlargement of right level 2, 3, and 4 cervical lymphadenopathy. 2. 5 mm right thyroid nodule, nonspecific. Dictated by: Kayley Guerra M.D. The radiology attending physician has personally reviewed this study, and had reviewed and/or edited this written report and agrees with it. Electronically signed by: Marcelle Figueroa M.D. Narrative 02/17/2025 7:46 AM CASHIER CREDIT EXAMINATION: CT of the neck without contrast HISTORY: 69-year-old female with right neck lymphadenopathy. TECHNIQUE: CT of the neck was performed according to the standard protocol without intravenous contrast. COMPARISON: CT 08/01/2024, PET/CT 04/16/2024 FINDINGS: Multiple enlarged right level 2, 3, and 4 cervical lymph nodes with interval increase in size when compared to prior. The largest is the previously describe conglomerate that measures approximately 1.2 x 2.3 x 1.8 cm on today's examination (series 2, image 76). 5mm right thyroid nodule, nonspecific. The muscles of the neck are normal. No definite mass or lesion is identified within the airway. Fascial planes are preserved and the deep spaces of the neck are normal. The visualized airway is widely patent. The base of the skull and the temporal bones are normal. Limited views of the brain including the cerebellum and brainstem are normal. The visualized portions of the orbits are normal. Multilevel degenerative changes of the cervical spine without significant neuroforaminal or spinal canal stenosis. Limited examination of the superior thorax shows no pulmonary infiltrate, suspicious nodules, or pleural effusions. Procedure Note Marcelle Figueroa MD - 02/17/2025 EXAMINATION: CT of the neck without contrast HISTORY: 69-year-old female with right neck lymphadenopathy. TECHNIQUE: CT of the neck was performed according to the standard protocol without intravenous contrast. COMPARISON: CT 08/01/2024, PET/CT 04/16/2024 FINDINGS: Multiple enlarged right level 2, 3, and 4 cervical lymph nodes with interval increase in size when compared to prior. The largest is the previously describe conglomerate that measures approximately 1.2 x 2.3 x 1.8 cm on today's examination (series 2, image 76). 5mm right thyroid nodule, nonspecific. The muscles of the neck are normal. No definite mass or lesion is identified within the airway. Fascial planes are preserved and the deep spaces of the neck are normal. The visualized airway is widely patent. The base of the skull and the temporal bones are normal. Limited views of the brain including the cerebellum and brainstem are normal. The visualized portions of the orbits are normal. Multilevel degenerative changes of the cervical spine without significant neuroforaminal or spinal canal stenosis. Limited examination of the superior thorax shows no pulmonary infiltrate, suspicious nodules, or pleural effusions. IMPRESSION: 1. Interval enlargement of right level 2, 3, and 4 cervical lymphadenopathy. 2. 5 mm right thyroid nodule, nonspecific. Dictated by: Kayley Guerra M.D. The radiology attending physician has personally reviewed this study, and had reviewed and/or edited this written report and agrees with it. Electronically signed by: Marcelle Figueroa M.D. us Logan Dove MD IMG CT PROCEDURES Jessica l Result * SCAN - RADIOLOGY/IMAGING (01/23/2025) Anatomical Region Laterality Modality Other us Michael Nance MD Final R esult * SCAN - LABS (01/23/2025) us Michael Nance MD Final R esult * Albumin Creatinine Ratio, Urine (10/06/2024 8:25 AM CDT) Pathologist [facility] Creatinine, ur 38 20 - 275 mg/dL [...] 6:28 AM CDT FASTING:YES FASTING: YES Michael Nance MD LAB URINE ORDERABLES Fi nal Result Performing Organization Address City/[facility] Co de Phone Number [facility] [address] [address] * (ABNORMAL) Hemoglobin A1c (10/06/2024 8:25 AM CDT) Hgb A1C 8.3(H) <5.7 % of total Hgb [facility] Comment: For someone without known [...] 6:28 AM CDT FASTING:YES FASTING: YES Michael Nance MD LAB BLOOD ORDERABLES Fi nal Result Performing Organization Address City/[facility] Co de Phone Number [employer] [facility] [address] [place] [address] * (ABNORMAL) Lipid panel (10/06/2024 8:25 AM [...] factors. LDL-C is now calculated using the Winston-Martinez calculation, which is a validated novel method providing better accuracy than the Friedewald equation in the estimation of LDL-C. Winston SS et al. ALYSIA. 2013;310(88): 5549-0999 (http://education.Quippi/faq/ABD444) Chol/HDL ratio 6.0(H) <5.0 (calc) [facility] [...] 6:28 AM CDT FASTING:YES FASTING: YES Michael Nance MD LAB BLOOD ORDERABLES Fi nal Result [facility] [address] [place] [address] * (ABNORMAL) Comprehensive metabolic panel (10/06/2024 8:25 AM CDT) [facility] Glucose 212(H) 65 - 99 mg/dL [facility] [...] 6:28 AM CDT FASTING:YES FASTING: YES Michael Nance MD LAB BLOOD ORDERABLES Fi nal Result [facility] [address] [address] [facility] [place] [address] * Dexa Axial Skeleton Bone Density 1 or 2 Site (05/07/2024 9:00 AM CASHIER CREDIT) Anatomical Region Laterality Modality Body N/A Other 05/07/2024 3:26 PM CASHIER CREDIT Narrative 05/07/2024 3:28 PM CASHIER CREDIT EXAM DESCRIPTION: DEXA AXIAL SKELETON BONE DENSITY 1 OR MORE SITES REASON FOR STUDY: 68 y/o year old F with given history of: Postmenopausal status. Compression fracture. Patient has taken/is taking vitamin-D and calcium Motor Tester/Model: Hologic Discovery SL (S/N [id number]) Facility LSC value of 0.022 for the [...] Oma Bernal M.D. TW: TW Report ID: [id number] Reading Location: [id number] Procedure Note Oma Bernal MD - 05/07/2024 EXAM DESCRIPTION: DEXA AXIAL SKELETON BONE DENSITY 1 OR MORE SITES REASON FOR STUDY: 68 y/o year old F with given history of:Postmenopausal status. Compression fracture. Patient has taken/is taking vitamin-Dand calcium Motor Tester/Model: Recondo SL (S/N [id number]) Facility LSC value of 0.022 for the [...] Oma Bernal M.D. TW: RASTA Report ID: [id number] Reading Location: [id number] Michael Nance MD IMG DXA PROCEDURES Jessica l Result * CT Lung Cancer Screening (03/01/2024 8:20 AM CASHIER CREDIT) Anatomical Region Laterality Modality Chest N/A Computed Tomogra phy 03/03/2024 9:22 AM CASHIER CREDIT Narrative 03/03/2024 9:31 AM CASHIER CREDIT EXAM DESCRIPTION: CT LUNG CANCER SCREENING REASON [...] Oma Bernal M.D. TW: RASTA Report ID: [id number] Reading Location: [id number] us Michael Nance MD IMG CT PROCEDURES Final Result * (ABNORMAL) Diabetic Eye Exam (07/27/2023) us Generic External Data Provider [facility] E Final Result * SCREENING MAMMOGRAM BILATERAL W ANGELITO (05/12/2023 8:48 AM CASHIER CREDIT) Anatomical Region Laterality Modality Breast Bilateral Mammography 05/12/2023 2:15 PM CASHIER CREDIT Impressions 05/12/2023 2:15 PM CASHIER CREDIT There is no mammographic evidence of malignancy. A 1 year screening mammogram is recommended. BI-RADS: 1 - Negative. The patient has been or will be contacted. The patient will be entered into a reminder system with a target due date of 1 year for her next mammogram. Electronically signed by: Roxi Mak M.D. Narrative 05/12/2023 2:15 PM CASHIER CREDIT EXAMINATION: SCREENING MAMMOGRAM BILATERAL W ANGELITO ORDERING HEALTHCARE PROVIDER: MICHAEL NANCE HISTORY: Routine screening mammography. COMPARISON: 10/04/2021, 09/13/2020, [...] There has been no suspicious interval change. Result [facility] Michael Nance MD IMG MAMMO PROCEDURES Fi nal Result * DIABETES FOOT EXAM (08/22/2019) Pathologist [facility] Diabetic Foot Exam Abnormal Result [facility] Historical [facility] Final Result * COLONOSCOPY IMAGES (07/01/2015) Anatomical Region Laterality Modality Other Narrative 07/01/2015 Ordered by an unspecified provider. Result [facility] Historical Provider GI PROCEDURE ORDERABLES F inal Result * Serum Hepatitis panel (04/06/2014 5:26 AM CASHIER CREDIT) HBV surface ag Negative Negative HISTO RICAL RESULTS HBV core ab, IgM Negative Negative HISTORICAL RESULTS HCV ab Negative Negative HISTORICAL RESULTS HAV ab, IgM Negative Negative HISTORIC AL RESULTS Serum 04/06/2014 5:26 AM CASHIER CREDIT Result [facility] Isai Cortes MD LAB BLOOD ORDERABLES Final Result HISTORICAL RESULTS from Last 3 Months or Most Recently Relevant to Health Maintenance Insurance AETNA MEDICARE AETNA MEDICARE Care Teams Car Attendant Relationship Specialty Start Date End Date Michael Nance MD PCP - General 06/16/16 Irene Steiner, JACKSON Nurse Practitioner Endocrinology Diabetes & Metabolism 01/19/20
--- OUTSIDE RECORDS SUMMARY | 2025-03-10 07:30 | XMS_ITS | Encounter Summary ---
Author Organization [facility] Address [address] [place] [address] Phone Care Team Providers Care Milking Machine Operator Name Role Phone Jose Manuel Nance MD Primary Care Provider Irene Steiner MASKING MACHINE FEEDER Unavailable [phone] Reason for Referral * Consultation (Routine) - Authorized Specialty Diagnoses / Procedures Referred By Iva t Referred To Contact Medical Oncology / Blood and Marrow Transplant Diagnoses Lymphoproliferative disorder (HCC) Valentine Syed PA [address] [facility] [address] [place] [address] Phone: tel: fax: Aaliyah Nix MD [address] [facility] [address] [place] [address] Phone: tel: fax: Referral ID Status Reason Start Date Expiration Date Visits Requested Visits Authorized [id number] Authorized Specialty Services Required 04/05/2026 99 99 Question Answer Please select the performing region: [facility] (All Locations) [[id number]] To Provider NOTE: we will do our best to honor your provider preference, but scheduling the patient in a timely manner in our clinic will take precedence. AALIYAH NIX [[id number]] # of visits: 1 Y TERMINAL AGENT Encounter Details Date Type Department Care Team (Latest Contact Info) Description 03/06/2025 Orders Only [facility] Medicine Otolaryngology Head-Neck Division [address] [facility] Floor [address] [place] [address] Valentine Syed PA [address] [facility] [address] [place] [address] Lymphoproliferative disorder (HCC) (Primary Dx) Social History Tobacco Use Types Packs/Day Years Used Date Smoking Tobacco: Former Cigarettes 1 35 1 - 2024 Smokeless Tobacco: Never Comments:Smoking History Pac ks/day: [...] on file Legal Sex Female 11:52 PM FERRY TERMINAL AGENT Gender Identity Not on file Sexual Orientation Not on file documented as of this encounter Plan of Treatment Scheduled Referrals Name Type Priority Associated Diagnoses Order Schedule Ambulatory referral to Blood and Marrrow Transplant & Hematology Malignancies Outpatient Referral Routine Lymphoproliferative disorder (HCC) Expected: 03/20/2025 (Approximate), Expires: 03/06/2026 documented as of this encounter Visit Diagnoses Diagnosis Lymphoproliferative disorder (HCC)- 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
--- OUTSIDE RECORDS SUMMARY | 2025-03-10 07:30 | XMS_ITS | Encounter Summary ---
Author Organization [facility] Address [address] [place] [address] Phone Care Team Providers Care Brilliandeer Lopper Name Role Phone Jose Manuel Nance MD Primary Care Provider Irene Steiner FILM VAULT SUPERVISOR Unavailable [phone] Encounter Details Date Type Department Care Team (Late st Contact Info) Description 08/09/2017 Orders Only [facility] ProviderJamilah MD [address] [place] [address] Social History Tobacco Use Types Packs/Day Years Used Date Smoking Tobacco: Some Days Smokeless Tobacco: Never Comments:Smoking History Pac ks/day: 1 Packs Alcohol Use Standard Drinks/Week Comments No 0 (1 standard drink = 0.6 oz pur e alcohol) Comments Unknown Sex and Gender Information Value Date Recorded Sex Assigned at Not on file Legal Sex Female 11:52 PM WATCHSTANDER Gender Identity Not on file Sexual Orientation [...] on filedocumented in this encounter Care Teams Brilliandeer Lopper Relationship Specialty Start Date End Date Jose Manuel Nance MD PCP - General 06/16/16 Irene Steiner NP Nurse Practitioner Endocrinology Diabetes & Metabolism 01/19/20 documented as of this encounter
--- OUTSIDE RECORDS SUMMARY | 2025-03-10 07:30 | XMS_ITS | Encounter Summary ---
Author Organization [facility] Address [address] [place] [address] Phone Care Team Providers Care Field Service Technician Name Role Phone Jose Manuel Nance MD Primary Care Provider Irene Steiner REGRINDER OPERATOR Unavailable [phone] Reason for Referral * MRI/CAT/PET Scan (Routine) - Authorized Specialty Diagnoses / Procedures Referred By Contac t Referred To Contact Radiology Diagnoses Lymphoproliferative disorder (HCC) Procedures PET/CT FDG Skull to Thigh Aaliyah Nix MD [address] [facility] [address] [place] [address] Phone: tel: fax: [address] [address] Referral ID Status Reason Start Date Expiration Date V isits Requested Visits Authorized [id number] Authorized 03/09/2025 04/08/2026 1 2 WEAVER Encounter Details Date Type Department Care Team (Latest Contact Info) Description 03/09/2025 Orders Only [facility] Medicine Oncology [address] [facility] Floor [address] [place] [address] Aaliyah Nix MD [address] [facility] [address] [place] [address] Lymphoproliferative disorder (HCC) (Primary Dx) Social History Tobacco Use Types Packs/Day Years Used Date Smoking Tobacco: Former Cigarettes 1 35 1 990 - 2024 Smokeless Tobacco: Never Comments:Smoking History [...] on file Legal Sex Female 11:52 PM HAND WEAVER Gender Identity Not on file Sexual Orientation Not on file documented as of this encounter Plan of Treatment Scheduled Orders Name Type Priority Associated Diagnoses Orde r Schedule PET/CT FDG Skull to Thigh Imaging Schedule Routine, Read Routine (OP Routine) Lymphoproliferative disorder (HCC) Expected: 03/16/2025 (Approximate), Expires: 03/09/2026 documented as of this encounter Visit Diagnoses Diagnosis Lymphoproliferative disorder (HCC)- 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
--- NOTE | 2025-03-10 07:38 | ECHO_ITS ---
Patient Info Name: Gabi Parks Age: 69 years : 1955 Gender: Female Ht: 66 in Wt: 160 lbs BSA: 1.85 m2 HR: 89 bpm BP: 142 / 83 mmHg Heart Rhythm: Sinus Rhythm Technical Quality: Good Exam Date: 03/10/2025 7:42 AM Patient Status: O Admit Date: 03/10/2025 Exam Type: CA echo doppler color flow Complete two-dimensional, color flow and Doppler transthoracic echocardiogram is performed. Staff Referring Physician: Kalia Stevens DO Color Maker Dyer: Lillian Goins Attending Provider: Kalia Stevens DO Summary 1. Complete two-dimensional, color flow and Doppler transthoracic echocardiogram is performed. 2. Left ventricular chamber dimension is normal. 3. Left ventricular systolic function is normal, estimated at 60-65. 4. The left ventricular diastolic function is grade I diastolic dysfunction. 5. E/e' 13 is mildly elevated. 6. There is mild aortic valve sclerosis. 7. The mitral valve has a mildly calcified annulus. Left Ventricle Left ventricular chamber dimension is normal. Left ventricular systolic function is normal, estimated at 60-65. The left ventricular diastolic function is grade I diastolic dysfunction. E/e' 13 is mildly elevated. Right Ventricle Right ventricular chamber dimension is normal. Right ventricular systolic function is normal and with normal TAPSE 2.1 cm. Left Atria Left atrial chamber dimension is normal. Right Atria Right atrial chamber dimension is normal. Aortic Valve The aortic valve is trileaflet. There is mild aortic valve sclerosis. There is no aortic valve stenosis. There is no aortic valve regurgitation. Pulmonic Valve There is no pulmonic regurgitation. Mitral Valve The mitral valve has a mildly calcified annulus. There is no mitral valve stenosis. There is no mitral valve regurgitation. Tricuspid Valve There is no tricuspid valve regurgitation. Pericardium/Pleural There is no pericardial effusion. Inferior Vena Cava Normal inferior vena cava with >50% collapse upon inspiration consistent with normal right atrial pressure, 5 mmHg. Aorta The aortic root size at the sinus of Valsalva is normal. Left Ventricular Outflow Tract Name Value Normal LVOT 2D LVOT Diameter 2.0 cm LVOT Doppler LVOT Peak Velocity 88 cm/s LVOT Peak Gradient 3 mmHg LVOT Mean Gradient 2 mmHg LVOT VTI 18 cm LVOT VTI/AV VTI Ratio 0.6 LVOT Stroke Volume 57 ml LVOT CO 4.9 l/min LVOT CI 2.7 l/min/m2 Pulmonic Valve Name Value Normal RVOT Doppler RVOT Peak Velocity 81 cm/s RVOT Peak Gradient 3 mmHg PV Doppler PV Peak Velocity 113 cm/s PV Peak Gradient 5 mmHg Mitral Valve Name Value Normal MV Diastolic Function MV E Peak Velocity 70 cm/s MV A Peak Velocity 101 cm/s MV E/A 0.7 MV Decel Time (PW) 158 ms MV Annular TDI MV E/e' (Septal) 15.3 MV E/e' (Lateral) 11.8 MV E/e' (Average) 13.5 Tricuspid Valve Name Value Normal Estimated PAP/RSVP RA Pressure 5 mmHg <=5 TV Annular TDI TV Lateral Viky s' Velocity 8.4 cm/s >=9.5 Aorta Name Value Normal Ascending Aorta Ao Root Diameter (MM) 2.6 cm Ao Root Diam Index (MM) 1.4 cm/m2 Aortic Valve Name Value Normal AV Doppler AV Peak Velocity 139 cm/s AV Peak Gradient 8 mmHg AV Mean Gradient 4 mmHg AV VTI 28 cm AV Area (Cont Eq VTI) 2.1 cm2 >=3.0 AV Area (Cont Eq Rafita) 2.0 cm2 AV DI (Rafita) 0.63 AV Regurgitation 2D LVOT Area 3.2 cm2 Ventricles Name Value Normal LV Dimensions 2D/MM IVS Diastolic Thickness (2D) 0.8 cm 0.6-1.0 LVID Diastole (2D) 3.6 cm 3.8-5.2 LVIW Diastolic Thickness (2D) 0.8 cm 0.6-0.9 LVID Systole (2D) 2.6 cm 2.2-3.5 LVOT Diameter 2.0 cm LV Mass (2D Cubed) 84.61 g 67.00-162.00 LV Mass Index (2D Cubed) 46 g/m2 43-95 Relative Wall Thickness (2D) 0.46 <=0.42 LV Fractional Shortening/Ejection Fraction 2D/MM LV Fractional Shortening (2D) 28 % 27-45 LV EF (2D Teichholz) 55 % LV Diastolic Volume (4C MOD) 46 ml LV EF (4C MOD) 63 % LV Diastolic Volume (2C MOD) 47 ml LV EF (2C MOD) 65 % LV Diastolic Volume (BP MOD) 49 ml 46-106 LV Diastolic Volume Index (BP MOD) 26 ml/m2 29-61 LV Systolic Volume (BP MOD) 17 ml 14-42 LV Systolic Volume Index (BP MOD) 9 ml/m2 8-24 LV EF (BP MOD) 66 % 54-74 LV Diastolic Length (4C) 7.7 cm LV Systolic Length (4C) 6.1 cm LV Stroke Volume (4C MOD) 29 ml Atria Name Value Normal LA Dimensions LA Dimension (MM) 4.5 cm 2.7-3.8 LA Volume (4C A-L) 30 ml LA Volume (BP A-L) 38 ml RA Dimensions RA Area (4C) 14.0 cm2 <=18.0 Report Signatures
--- NOTE | 2025-03-10 08:43 | EST_ITS ---
Patient Info Name: Gabi Parks Age: 69 years : 1955 Gender: Female Ht: 66 in Wt: 160 lbs BSA: 1.85 m2 HR: 88 bpm BP: 127 / 71 mmHg Exam Date: 03/10/2025 8:43 AM Patient Status: O Admit Date: 03/10/2025 Exam Type: CA stress nichelle w NM A regadenoson stress test was performed. Staff Referring Physician: Kalia Stevens DO Attending Provider: Kalia Stevens DO Exercise Technologist: Radha Hurtado Exercise Physician: Kalia Stevens DO Summary 1. 1. Negative lexiscan stress test for ischemic ST changes by ECG criteria. 2. 2. Stable hemodynamics throughout the test. 3. 3. Nuclear scan to follow and will be reported separately. Please correlate with it. 4. 4. Patient informed of the above results. Protocol: Lexiscan Stress ECG Details Stage: REST Duration (min): 0 min : 25 sec HR (bpm): 87 SBP (mmHg): --- DBP (mmHg): --- Stage: REST Duration (min): 10 min : 10 sec HR (bpm): 87 SBP (mmHg): 127 DBP (mmHg): 71 Stage: STAGE 1 Duration (min): 1 min : 0 sec HR (bpm): 98 SBP (mmHg): 142 DBP (mmHg): 54 Stage: RECOVERY Duration (min): 1 min : 0 sec HR (bpm): 101 SBP (mmHg): 142 DBP (mmHg): 54 Stage: RECOVERY Duration (min): 2 min : 0 sec HR (bpm): 104 SBP (mmHg): 142 DBP (mmHg): 54 Stage: RECOVERY Duration (min): 3 min : 0 sec HR (bpm): 102 SBP (mmHg): 144 DBP (mmHg): 63 Stage: RECOVERY Duration (min): 3 min : 32 sec HR (bpm): 99 SBP (mmHg): 144 DBP (mmHg): 63 Rest HR: 87 bpm Peak HR: 105 bpm Rest Sys BP: 127 mmHg Peak Sys BP: 144 mmHg Max Pred HR: 150 bpm % Max Pred HR: 70 % Target HR: 128 bpm Max RPP: 15,120 bpm*mmHg Termination Reason: Completed protocol Cardiac Symptoms: Shortness of breath Total Time: 1 min : 0 sec Rest Elmore BP: 71 mmHg Peak Elmore BP: 63 mmHg Total Dose: 0.4 mg Resting ECG Sinus rhythm. Stress ECG No ST changes. Arrhythmias None. Report Signatures
== END 2025-03-10 07:27 | disposition home or self-care (01) ==
PROVIDERS: PCP Internal Medicine; Visit Provider Internal Medicine Cardiovascular Disease
DX: Z01.810 Encounter for preprocedural cardiovascular examination (principal); I25.10 Atherosclerotic heart disease of native coronary artery without angina pectoris
CPT/HCPCS: 78452; 93017; 93306; A9502; J2785